=== PATIENT | female | born 1945 | race Caucasian/White ===

== ENCOUNTER 2017-11-10 13:51 | Outpatient (CLI) | payer MEDICARE, MEDICAID ==
--- NOTE | 2017-11-10 17:11 | RAD ---
RIGHT HIP TWO VIEWS 11/10/17 No fracture or area of bony destruction was seen. The joint space is normal in width. Degenerative ch anges are quite minimal. The adjacent pubic ring appears intact. IMPRESSION: No acute findings. POS: HOME
--- NOTE | 2017-11-10 17:15 | RAD ---
LEFT HIP TWO VIEWS 11/10/17 No fracture or area of bony destruction was seen. Degenerative changes are present but not excessive. There may be some subchondral cysts in the femoral head. IMPRESSION: No acute findings. POS: HOME
--- NOTE | 2017-11-10 17:41 | RAD ---
LUMBAR SPINE FIVE VIEWS 11/10/17 There is a minimal compression of the L1 vertebral body. It is more likely old than new but should be correlated with any site of pain. Disc space narrowing is present at L4-L5 with a degenerated disc h ere. The other disc spaces are normal in height but virtually all have degenerated discs as well. The re is some mild scoliosis of the lumbar spine. The SI joints are symmetrical. The aorta is calcified and there is the suggestion that there may be a 3.3 cm distal abdominal aortic aneurysm. Looking back at a [address], there indeed is a dilation of the aorta here that measured 3.1 cm at the e. Thus is it stable. IMPRESSION: 1. Very minor compression of L1, age indeterminate but probably more likely old than new. Correl ate with clinical exam. 2. Multilevel degenerative disc disease with mild disc space narrowing at L4-L5. 3. 3.3 cm distal abdominal aortic aneurysm. Not substantially different in size compared to a [address] scan[address] POS: HOME
== END 2017-11-10 13:52 | disposition home or self-care (01) ==
LOC: BURRAD 13:51
PROVIDERS: ATTEND Nurse Practitioner Family
DX: M54.9 Dorsalgia, unspecified (principal); G95.20 Unspecified cord compression; M51.36 Other intervertebral disc degeneration, lumbar region; M48.061 Spinal stenosis, lumbar region without neurogenic claudication; I71.4 Abdominal aortic aneurysm, without rupture; Z91.81 History of falling
CPT/HCPCS: 72110

== ENCOUNTER 2018-04-04 08:07 | Outpatient (CLI) | payer MEDICARE, OTHER ==
--- NOTE | 2018-04-04 15:30 | ULT ---
THYROID ULTRASOUND: 04/04/2018 COMPARISON: Prior thyroid ultrasound, dated 07/26/2016. FINDINGS: Overall, the size of the thyroid gland has increased slightly over time. The right lobe measures 4.8 x 2 x 2 cm, and the left lobe measures 4.6 x 3.1 x 2.6 cm. The right lobe has at least 3 solid nodules in it, the largest measuring 1.5 cm in diameter, in the u pper pole. A large solitary calcification is seen in the middle third, measuring about 4 mm in size. Overall, the nodules seem comparable to before. The left lobe, again, shows a large, solid nodule with a cystic center portion. The large nodule dutch sures 3.3 cm in diameter, and the cystic part measures about 2.3 cm in size. There may be a septatio n in the middle of this cystic area. The size of these findings is almost identical to the 2016 stud y. The septated area seems somewhat new. I would note that many of these nodules do have a somewhat lucent halo around them, making thyroid ad enomas high on the list of considerations. None of the images show significant cervical adenopathy. IMPRESSION: Slight increase in the overall size of the thyroid gland over time. The multiple nodules described a timothy seem fairly stable. POS: HOME
== END 2018-04-04 08:08 | disposition home or self-care (01) ==
LOC: BURULT 08:07
PROVIDERS: ATTEND Nurse Practitioner Family
DX: E04.2 Nontoxic multinodular goiter (principal)
CPT/HCPCS: 76536

== ENCOUNTER 2021-11-30 10:56 | Inpatient (IN) | payer MEDICARE, MEDICAID ==
[2021-11-30] MEDS ORDERED: Non-Formulary Item 1 EACH (Albuterol Sulfate [Ventolin Hfa] 8 GM Hfa.Aer.Ad) INH PRN (13:31)
[2021-11-30] MEDS ORDERED: Albuterol Sulfate 2.5 mg/3 ml Neb NEB PRN (13:31)
[2021-11-30] MEDS ORDERED: Loperamide HCl 2 MG CAP PO PRN (13:31)
[2021-11-30] MEDS ORDERED: Alendronate Sodium 70 mg Tablet PO SCH (13:45)
[2021-11-30] MEDS ORDERED: Arformoterol 15 MCG/2 ML NEB NEB PRN (13:53)
[2021-11-30 14:36] VITALS: BMI 21.2
[2021-11-30] MEDS: Acetaminophen 325 MG TAB PO SCH ×2 (15:07→20:39)
[2021-11-30] MEDS: Gabapentin 300 MG CAP PO SCH ×2 (15:08→20:39)
[2021-11-30 17:08] LABS: ALT (SGPT) 13 U/L (8-55); AST (SGOT) 17 U/L (5-34); Alkaline Phosphatase 123 U/L (40-110); Anion Gap 11 mmol/L (10-20); BUN (Urea Nitrogen) 12 mg/dL (9.8-20.1); CRP (Inflammatory) 28.64 mg/dL (= or < 0.5); Calc. Creatinine Clearance 69 mL/min (70-130); Calcium 8.4 mg/dL (7.8-10.44); Carbon Dioxide 27 mmol/L (23-31); Chloride 99 mmol/L (98-107); Globulin 3.6 g/dL (2.4-3.5); Glucose 122 mg/dL (83-110); Potassium 3.7 mmol/L (3.5-5.1); Protein, Total 6.6 g/dL (5.8-8.1); Sodium 133 mmol/L (136-145)
[2021-11-30 17:13] LABS: Bilirubin Negative (Negative); Blood, Urine Large (Negative); Clarity Turbid (Clear); Glucose, Urine (Dipstick) Negative (Negative); Ketone, Urine Negative (Negative); Leukocyte Moderate (Negative); Nitrite Negative (Negative); Protein, Urine (Dipstick) > or equal to 300 mg/dL (Neg-Trace); Urobilinogen 0.2 mg/dL (Less than 2); pH, Urine 6.5 (5.0-9.0)
[2021-11-30 17:25] LABS: Hemoglobin 9.9 g/dL (12.0-16.0); Mean Corpuscular HGB CONC 33.8 g/dL (32.0-36.0); Mean Corpuscular Hemoglobin 31.2 pg (27.0-31.0); Mean Corpuscular Volume 92.4 fL (78.0-98.0); Mean Platelet Volume 7.4 fL (7.4-10.4); Platelet Count 371 thou/uL (130-400); RBC Distribution Width 13.4 % (11.5-14.5); Red Blood Cell (RBC) Count 3.17 mill/uL (4.20-5.40); White Blood Cell (WBC) Count 14.6 thou/uL (4.8-10.8)
[2021-11-30 17:46] LABS: Bacteria/HPF Rare-Few HPF (None Seen); Renal Epithelial 0-3 HPF (None Seen); WBC/HPF Greater than 50 HPF (0-3)
[2021-11-30 17:47] LABS: Epithelial Cast 0-3 LPF (None Seen); White Blood Cell Cast 0-3 LPF (None Seen)
[2021-11-30 17:49] LABS: Urine Culture Reflex No No
[2021-11-30 17:53] LABS: Band 3 % (5-11); Lymphocytes 6 % (21-51); MDiff Complete? YES; Monocytes 7 % (0-10); Neutrophil 83 % (42-75); Reflex for Review?? YES
[2021-11-30] MEDS ORDERED: Sodium Chloride 0.9% 250 ML 250 ML IVPB SCH (19:45)
[2021-11-30] MEDS ORDERED: Vancomycin 1.5 GRAM/300 ML BAG 1.5 GM in Premix Bag 1 BAG IVPB SCH (20:00)
[2021-11-30 20:50] VITALS: BP 124/73
[2021-11-30] MEDS ORDERED: Senokot S 8.6-50 MG TAB PO SCH (21:00)
[2021-11-30] MEDS ORDERED: Enoxaparin Sodium 30 MG/0.3 ML SYRINGE SC SCH (21:00)
[2021-11-30] MEDS ORDERED: Magnesium Oxide 400 MG TAB PO SCH (21:00)
[2021-11-30] MEDS ORDERED: Diltiazem HCl SR 60 mg Capsule PO SCH (21:00)
[2021-11-30] MEDS ORDERED: DILTIAZEM HCL 60 MG PO SCH (21:00)
[2021-11-30] MEDS ORDERED: Aspirin 81 mg Enteric Coated Tablet PO SCH (21:00)
[2021-11-30 21:57] VITALS: TEMP 99.6
[2021-11-30] MEDS ORDERED: Cefepime 2 GM in Sodium Chloride 0.9% 100 ML IVPB SCH (22:00)
[2021-12-01] MEDS ORDERED: Ascorbic Acid 500 mg Chewable Tablet PO SCH (09:00)
[2021-12-01] MEDS ORDERED: Multivit, Therapeutic 1 TAB PO SCH (09:00)
[2021-12-01] MEDS ORDERED: Atorvastatin Calcium 40 MG TAB PO SCH ×2 (09:00)
[2021-12-01] MEDS ORDERED: Polyethylene Glycol 3350 17 GM Packet PO SCH (09:00)
[2021-12-01] MEDS ORDERED: Escitalopram Oxalate 10 mg Tablet PO SCH (09:00)
[2021-12-01] MEDS ORDERED: Montelukast Sodium 10 mg Tablet PO SCH (09:00)
[2021-12-01] MEDS ORDERED: FLU VACC QS2021-22(65YR UP)/PF 240 MCG/0.7 ML SYRINGE IM ONE (09:00)
[2021-12-01] MEDS ORDERED: Floranex 1 GM Packet PO SCH (09:00)
[2021-12-01] MEDS ORDERED: Zinc Sulfate 220 MG CAP PO SCH (09:00)
== END 2021-11-30 22:25 | disposition short-term general hospital (02) | DRG 561 ==
LOC: BURMED 12:45
PROVIDERS: ADMIT Family Medicine; ATTEND Family Medicine
DX: S72.002D Fracture of unspecified part of neck of left femur, subsequent encounter for closed fracture with routine healing (principal); W19.XXXD Unspecified fall, subsequent encounter; F32.A Depression, unspecified; I25.10 Atherosclerotic heart disease of native coronary artery without angina pectoris; J44.9 Chronic obstructive pulmonary disease, unspecified; M19.90 Unspecified osteoarthritis, unspecified site; F17.210 Nicotine dependence, cigarettes, uncomplicated
CPT/HCPCS: 36415; 80053; 81001; 83605; 85025; 85060; 86140; 87040; 87077; 87149; 87186; J0692; J1650; J3370; J3490; J7050

== ENCOUNTER 2021-12-09 13:45 | Inpatient (IN) | payer MEDICARE, MEDICAID ==
[2021-12-09 15:48] VITALS: BMI 18.8
[2021-12-09] MEDS ORDERED: Loperamide HCl 2 MG CAP PO PRN (17:31)
[2021-12-09] MEDS ORDERED: Albuterol Sulfate 2.5 mg/3 ml Neb NEB PRN (17:31)
[2021-12-09] MEDS ORDERED: Non-Formulary Item 1 EACH (Albuterol Sulfate [Ventolin Hfa] 8 GM Hfa.Aer.Ad) INH PRN (17:31)
[2021-12-09] MEDS ORDERED: Artificial Tear Sol 15 ML BOT EA EYE PRN (17:31)
[2021-12-09] MEDS ORDERED: Alendronate Sodium 70 mg Tablet PO SCH (17:45)
[2021-12-09] MEDS ORDERED: FORMOTEROL FUMARATE 20 MCG/2 ML INH PRN (18:03)
[2021-12-09] MEDS: traMADol HCl 50 MG TAB PO PRN (18:20)
[2021-12-09] MEDS: Vancomycin HCl 750 MG in Sodium Chloride 0.9% 250 ML 250 ML IVPB SCH (18:31)
[2021-12-09] MEDS: Aspirin 81 mg Enteric Coated Tablet PO SCH (20:24)
[2021-12-09] MEDS: Magnesium Oxide 400 MG TAB PO SCH (20:24)
[2021-12-09] MEDS: Apixaban 2.5 MG TAB PO SCH (20:24)
[2021-12-09] MEDS: Senokot S 8.6-50 MG TAB PO SCH (20:25)
[2021-12-09] MEDS: Diltiazem HCl SR 60 mg Capsule PO SCH (20:25)
[2021-12-09] MEDS: Acetaminophen 325 MG TAB PO SCH (20:25)
[2021-12-09] MEDS: Gabapentin 300 MG CAP PO SCH (20:26)
[2021-12-09] MEDS: Mometasone/Formoterol 60 PUFF AER INH SCH (20:29)
[2021-12-09] MEDS ORDERED: Vancomycin HCl 750 MG VIAL IVPB SCH (23:59)
[2021-12-10] MEDS: Acetaminophen 325 MG TAB PO SCH ×4 (01:57→20:18)
[2021-12-10] MEDS: Vancomycin HCl 750 MG in Sodium Chloride 0.9% 250 ML 250 ML IVPB SCH (01:58)
[2021-12-10 09:11] LABS: Vancomycin, Trough 26.1 ug/mL
[2021-12-10] MEDS: Polyethylene Glycol 3350 17 GM Packet PO SCH (09:30)
[2021-12-10] MEDS ORDERED: Vancomycin HCl 750 MG, Admixture Fee 1 EACH in Sodium Chloride 0.9% 250 ML 250 ML IVPB SCH (09:45)
[2021-12-10] MEDS: Floranex 1 GM Packet PO SCH (10:19)
[2021-12-10] MEDS: Senokot S 8.6-50 MG TAB PO SCH ×2 (10:20→20:17)
[2021-12-10] MEDS: Multivit, Therapeutic 1 TAB PO SCH (10:20)
[2021-12-10] MEDS: Gabapentin 300 MG CAP PO SCH ×3 (10:21→20:19)
[2021-12-10] MEDS: Apixaban 2.5 MG TAB PO SCH ×2 (10:22→20:18)
[2021-12-10] MEDS: Escitalopram Oxalate 10 mg Tablet PO SCH (10:22)
[2021-12-10] MEDS: Aspirin 81 mg Enteric Coated Tablet PO SCH ×2 (10:22→20:17)
[2021-12-10] MEDS: Saccharomyces boulardii 250 MG CAP PO SCH (10:23)
[2021-12-10] MEDS: Montelukast Sodium 10 mg Tablet PO SCH (10:24)
[2021-12-10] MEDS: Magnesium Oxide 400 MG TAB PO SCH ×2 (10:24→20:18)
[2021-12-10] MEDS: Zinc Sulfate 220 MG CAP PO SCH (10:24)
[2021-12-10] MEDS: Ascorbic Acid 500 mg Chewable Tablet PO SCH (10:25)
[2021-12-10] MEDS: Cholecalciferol (Vitamin D3) 400 UNITS TAB PO SCH (10:25)
[2021-12-10] MEDS: Diltiazem HCl SR 60 mg Capsule PO SCH ×2 (10:25→20:18)
[2021-12-10] MEDS: Mometasone/Formoterol 60 PUFF AER INH SCH ×2 (10:26→21:21)
[2021-12-10 17:32] LABS: Vancomycin, Random 21.2 ug/mL (See Comment)
[2021-12-10] MEDS: Atorvastatin Calcium 40 MG TAB PO SCH (20:18)
[2021-12-11] MEDS ORDERED: Vancomycin HCl 750 MG, Admixture Fee 1 EACH in Sodium Chloride 0.9% 250 ML 250 ML IVPB SCH
[2021-12-11] MEDS: Acetaminophen 325 MG TAB PO SCH ×4 (02:09→20:20)
[2021-12-11] MEDS: Saccharomyces boulardii 250 MG CAP PO SCH (09:38)
[2021-12-11] MEDS: Senokot S 8.6-50 MG TAB PO SCH ×2 (09:41→20:20)
[2021-12-11] MEDS: Aspirin 81 mg Enteric Coated Tablet PO SCH ×2 (09:41→20:20)
[2021-12-11] MEDS: Zinc Sulfate 220 MG CAP PO SCH (09:41)
[2021-12-11] MEDS: Apixaban 2.5 MG TAB PO SCH ×2 (09:41→20:20)
[2021-12-11] MEDS: Cholecalciferol (Vitamin D3) 400 UNITS TAB PO SCH (09:41)
[2021-12-11] MEDS: Magnesium Oxide 400 MG TAB PO SCH ×2 (09:41→20:20)
[2021-12-11] MEDS: Ascorbic Acid 500 mg Chewable Tablet PO SCH (09:41)
[2021-12-11] MEDS: Montelukast Sodium 10 mg Tablet PO SCH (09:41)
[2021-12-11] MEDS: Escitalopram Oxalate 10 mg Tablet PO SCH (09:41)
[2021-12-11] MEDS: Multivit, Therapeutic 1 TAB PO SCH (09:41)
[2021-12-11] MEDS: Gabapentin 300 MG CAP PO SCH ×3 (09:42→20:20)
[2021-12-11] MEDS: Floranex 1 GM Packet PO SCH (09:44)
[2021-12-11] MEDS: Polyethylene Glycol 3350 17 GM Packet PO SCH (09:45)
[2021-12-11] MEDS: Mometasone/Formoterol 60 PUFF AER INH SCH ×2 (10:09→20:27)
[2021-12-11] MEDS: Diltiazem HCl SR 60 mg Capsule PO SCH ×2 (10:12→20:20)
[2021-12-11] MEDS: Vancomycin HCl 750 MG in Sodium Chloride 0.9% 250 ML 250 ML IVPB SCH (12:31)
[2021-12-11] MEDS ORDERED: Fluconazole 100 MG TAB PO SCH (17:45)
[2021-12-11] MEDS: Atorvastatin Calcium 40 MG TAB PO SCH (20:20)
[2021-12-12] MEDS: Acetaminophen 325 MG TAB PO SCH ×4 (00:56→20:17)
[2021-12-12] MEDS: Vancomycin HCl 750 MG in Sodium Chloride 0.9% 250 ML 250 ML IVPB SCH ×3 (00:56→23:38)
[2021-12-12] MEDS: Montelukast Sodium 10 mg Tablet PO SCH (08:53)
[2021-12-12] MEDS: Magnesium Oxide 400 MG TAB PO SCH ×2 (08:53→20:16)
[2021-12-12] MEDS: Senokot S 8.6-50 MG TAB PO SCH ×2 (08:53→20:13)
[2021-12-12] MEDS: Floranex 1 GM Packet PO SCH (08:53)
[2021-12-12] MEDS: Saccharomyces boulardii 250 MG CAP PO SCH (08:53)
[2021-12-12] MEDS: Zinc Sulfate 220 MG CAP PO SCH (08:53)
[2021-12-12] MEDS: Diltiazem HCl SR 60 mg Capsule PO SCH ×2 (08:53→20:16)
[2021-12-12] MEDS: Aspirin 81 mg Enteric Coated Tablet PO SCH ×2 (08:54→20:16)
[2021-12-12] MEDS: Multivit, Therapeutic 1 TAB PO SCH (08:54)
[2021-12-12] MEDS: Cholecalciferol (Vitamin D3) 400 UNITS TAB PO SCH (08:54)
[2021-12-12] MEDS: Escitalopram Oxalate 10 mg Tablet PO SCH (08:54)
[2021-12-12] MEDS: Apixaban 2.5 MG TAB PO SCH ×2 (08:54→20:16)
[2021-12-12] MEDS: Fluconazole 100 MG TAB PO SCH (08:54)
[2021-12-12] MEDS: Polyethylene Glycol 3350 17 GM Packet PO SCH (08:54)
[2021-12-12] MEDS: Ascorbic Acid 500 mg Chewable Tablet PO SCH (08:54)
[2021-12-12] MEDS: Mometasone/Formoterol 60 PUFF AER INH SCH ×2 (08:55→20:54)
[2021-12-12] MEDS: Gabapentin 300 MG CAP PO SCH ×3 (08:55→20:15)
[2021-12-12 11:32] LABS: Vancomycin, Trough 18.1 ug/mL
[2021-12-12] MEDS: traMADol HCl 50 MG TAB PO PRN (13:43)
[2021-12-12] MEDS: Atorvastatin Calcium 40 MG TAB PO SCH (20:17)
[2021-12-13] MEDS ORDERED: Acetaminophen 325 MG TAB ONE ×5 (01:37→21:00)
[2021-12-13] MEDS: Acetaminophen 325 MG TAB PO SCH ×4 (01:41→21:02)
[2021-12-13 05:54] LABS: #Basophils 0.2 thou/uL (0.0-0.2); #Eosinphils 0.1 thou/uL (0.0-0.7); #Monocytes 0.7 thou/uL (0.11-0.59); #Neutrophils 11.7 thou/uL (1.40-6.50); %Eosinophils 0.7 % (0.0-10.0); %Lymphocytes 13.8 % (21.0-51.0); %Monocytes 4.8 % (0.0-10.0); %Neutrophils 79.7 % (42.0-75.0); Hemoglobin 8.7 g/dL (12.0-16.0); Mean Corpuscular HGB CONC 32.6 g/dL (32.0-36.0); Mean Corpuscular Hemoglobin 29.8 pg (27.0-31.0); Mean Corpuscular Volume 91.3 fL (78.0-98.0); Mean Platelet Volume 6.1 fL (7.4-10.4); Platelet Count 511 thou/uL (130-400); RBC Distribution Width 14.3 % (11.5-14.5); Red Blood Cell (RBC) Count 2.93 mill/uL (4.20-5.40); White Blood Cell (WBC) Count 14.7 thou/uL (4.8-10.8)
[2021-12-13 06:05] LABS: ALT (SGPT) 49 U/L (8-55); AST (SGOT) 52 U/L (5-34); Albumin 2.5 g/dL (3.4-4.8); Alkaline Phosphatase 120 U/L (40-110); Anion Gap 12 mmol/L (10-20); BUN (Urea Nitrogen) 20 mg/dL (9.8-20.1); Bilirubin, Total 0.4 mg/dL (0.2-1.2); Calc. Creatinine Clearance 65 mL/min (70-130); Calcium 8.6 mg/dL (7.8-10.44); Carbon Dioxide 28 mmol/L (23-31); Chloride 102 mmol/L (98-107); Globulin 3.6 g/dL (2.4-3.5); Glucose 94 mg/dL (83-110); Potassium 4.1 mmol/L (3.5-5.1); Protein, Total 6.1 g/dL (5.8-8.1); Sodium 138 mmol/L (136-145)
[2021-12-13] MEDS: Polyethylene Glycol 3350 17 GM Packet PO SCH (09:10)
[2021-12-13] MEDS: Floranex 1 GM Packet PO SCH (09:10)
[2021-12-13] MEDS: traMADol HCl 50 MG TAB PO PRN (09:11)
[2021-12-13] MEDS: Aspirin 81 mg Enteric Coated Tablet PO SCH ×2 (09:12→21:03)
[2021-12-13] MEDS: Saccharomyces boulardii 250 MG CAP PO SCH (09:12)
[2021-12-13] MEDS: Montelukast Sodium 10 mg Tablet PO SCH (09:12)
[2021-12-13] MEDS: Zinc Sulfate 220 MG CAP PO SCH (09:14)
[2021-12-13] MEDS: Escitalopram Oxalate 10 mg Tablet PO SCH (09:14)
[2021-12-13] MEDS: Fluconazole 100 MG TAB PO SCH (09:14)
[2021-12-13] MEDS: Senokot S 8.6-50 MG TAB PO SCH ×2 (09:14→21:03)
[2021-12-13] MEDS: Apixaban 2.5 MG TAB PO SCH ×2 (09:14→21:02)
[2021-12-13] MEDS: Cholecalciferol (Vitamin D3) 400 UNITS TAB PO SCH (09:14)
[2021-12-13] MEDS: Gabapentin 300 MG CAP PO SCH ×3 (09:15→21:04)
[2021-12-13] MEDS: Multivit, Therapeutic 1 TAB PO SCH (09:15)
[2021-12-13] MEDS: Magnesium Oxide 400 MG TAB PO SCH ×2 (09:15→21:02)
[2021-12-13] MEDS: Ascorbic Acid 500 mg Chewable Tablet PO SCH (09:15)
[2021-12-13] MEDS: Mometasone/Formoterol 60 PUFF AER INH SCH ×2 (09:16→21:04)
[2021-12-13] MEDS: Ondansetron ODT 4 MG TAB PO PRN (10:35)
[2021-12-13] MEDS: Vancomycin HCl 750 MG in Sodium Chloride 0.9% 250 ML 250 ML IVPB SCH (11:16)
[2021-12-13] MEDS: Atorvastatin Calcium 40 MG TAB PO SCH (21:02)
[2021-12-13 23:18] LABS: Vancomycin, Trough 20.2 ug/mL
[2021-12-14] MEDS ORDERED: Acetaminophen 325 MG TAB ONE ×2 (00:29→08:08)
[2021-12-14] MEDS: Vancomycin HCl 750 MG in Sodium Chloride 0.9% 250 ML 250 ML IVPB SCH ×2 (00:42→13:09)
[2021-12-14] MEDS: Acetaminophen 325 MG TAB PO SCH ×4 (00:48→20:43)
[2021-12-14] MEDS: Polyethylene Glycol 3350 17 GM Packet PO SCH (08:23)
[2021-12-14] MEDS: Floranex 1 GM Packet PO SCH (08:24)
[2021-12-14] MEDS: Mometasone/Formoterol 60 PUFF AER INH SCH ×2 (08:24→20:46)
[2021-12-14] MEDS: Ascorbic Acid 500 mg Chewable Tablet PO SCH (08:25)
[2021-12-14] MEDS: Aspirin 81 mg Enteric Coated Tablet PO SCH ×2 (08:25→20:46)
[2021-12-14] MEDS: Apixaban 2.5 MG TAB PO SCH ×2 (08:25→20:44)
[2021-12-14] MEDS: Magnesium Oxide 400 MG TAB PO SCH ×2 (08:25→20:45)
[2021-12-14] MEDS: Zinc Sulfate 220 MG CAP PO SCH (08:25)
[2021-12-14] MEDS: Multivit, Therapeutic 1 TAB PO SCH (08:25)
[2021-12-14] MEDS: Escitalopram Oxalate 10 mg Tablet PO SCH (08:25)
[2021-12-14] MEDS: Fluconazole 100 MG TAB PO SCH (08:25)
[2021-12-14] MEDS: Senokot S 8.6-50 MG TAB PO SCH ×2 (08:26→20:44)
[2021-12-14] MEDS: Saccharomyces boulardii 250 MG CAP PO SCH (08:26)
[2021-12-14] MEDS: Cholecalciferol (Vitamin D3) 400 UNITS TAB PO SCH (08:26)
[2021-12-14] MEDS: Montelukast Sodium 10 mg Tablet PO SCH (08:26)
[2021-12-14] MEDS: Gabapentin 300 MG CAP PO SCH ×3 (08:26→20:42)
[2021-12-14] MEDS: traMADol HCl 50 MG TAB PO PRN (17:03)
[2021-12-14] MEDS: Atorvastatin Calcium 40 MG TAB PO SCH (20:45)
[2021-12-15] MEDS: Vancomycin HCl 750 MG in Sodium Chloride 0.9% 250 ML 250 ML IVPB SCH ×2 (00:10→12:26)
[2021-12-15] MEDS: Acetaminophen 325 MG TAB PO SCH ×4 (02:18→20:26)
[2021-12-15 05:21] LABS: Calc. Creatinine Clearance 69 mL/min (70-130)
[2021-12-15] MEDS: Aspirin 81 mg Enteric Coated Tablet PO SCH ×2 (11:02→20:25)
[2021-12-15] MEDS: Escitalopram Oxalate 10 mg Tablet PO SCH (11:03)
[2021-12-15] MEDS: Gabapentin 300 MG CAP PO SCH ×3 (11:03→20:25)
[2021-12-15] MEDS: Fluconazole 100 MG TAB PO SCH (11:04)
[2021-12-15] MEDS: Montelukast Sodium 10 mg Tablet PO SCH (11:04)
[2021-12-15] MEDS: Cholecalciferol (Vitamin D3) 400 UNITS TAB PO SCH (11:05)
[2021-12-15] MEDS: Ascorbic Acid 500 mg Chewable Tablet PO SCH (11:05)
[2021-12-15] MEDS: Senokot S 8.6-50 MG TAB PO SCH ×2 (11:05→20:25)
[2021-12-15] MEDS: Apixaban 2.5 MG TAB PO SCH ×2 (11:05→20:25)
[2021-12-15] MEDS: Polyethylene Glycol 3350 17 GM Packet PO SCH (11:06)
[2021-12-15] MEDS: Saccharomyces boulardii 250 MG CAP PO SCH (11:06)
[2021-12-15] MEDS: Multivit, Therapeutic 1 TAB PO SCH (11:06)
[2021-12-15] MEDS: Floranex 1 GM Packet PO SCH (11:06)
[2021-12-15] MEDS: Zinc Sulfate 220 MG CAP PO SCH (11:07)
[2021-12-15] MEDS: Magnesium Oxide 400 MG TAB PO SCH ×2 (11:07→20:25)
[2021-12-15] MEDS: Mometasone/Formoterol 60 PUFF AER INH SCH ×2 (11:07→20:29)
[2021-12-15 11:36] LABS: Vancomycin, Trough 18.3 ug/mL
[2021-12-15] MEDS: traMADol HCl 50 MG TAB PO PRN (16:59)
[2021-12-15] MEDS: Atorvastatin Calcium 40 MG TAB PO SCH (20:25)
[2021-12-16] MEDS: Vancomycin HCl 750 MG in Sodium Chloride 0.9% 250 ML 250 ML IVPB SCH ×2 (00:16→12:52)
[2021-12-16] MEDS: Acetaminophen 325 MG TAB PO SCH ×4 (02:11→21:48)
[2021-12-16 05:51] LABS: Calc. Creatinine Clearance 69 mL/min (70-130)
[2021-12-16] MEDS: Polyethylene Glycol 3350 17 GM Packet PO SCH (09:25)
[2021-12-16] MEDS: Floranex 1 GM Packet PO SCH (09:26)
[2021-12-16] MEDS: Senokot S 8.6-50 MG TAB PO SCH ×2 (09:26→21:42)
[2021-12-16] MEDS: Ascorbic Acid 500 mg Chewable Tablet PO SCH (09:26)
[2021-12-16] MEDS: Aspirin 81 mg Enteric Coated Tablet PO SCH ×2 (09:26→21:42)
[2021-12-16] MEDS: Montelukast Sodium 10 mg Tablet PO SCH (09:26)
[2021-12-16] MEDS: Apixaban 2.5 MG TAB PO SCH ×2 (09:26→21:42)
[2021-12-16] MEDS: Escitalopram Oxalate 10 mg Tablet PO SCH (09:27)
[2021-12-16] MEDS: Saccharomyces boulardii 250 MG CAP PO SCH (09:28)
[2021-12-16] MEDS: Gabapentin 300 MG CAP PO SCH ×3 (09:28→21:42)
[2021-12-16] MEDS: Zinc Sulfate 220 MG CAP PO SCH (09:29)
[2021-12-16] MEDS: Magnesium Oxide 400 MG TAB PO SCH ×2 (09:29→21:41)
[2021-12-16] MEDS: Fluconazole 100 MG TAB PO SCH (09:29)
[2021-12-16] MEDS: Multivit, Therapeutic 1 TAB PO SCH (09:30)
[2021-12-16] MEDS: Cholecalciferol (Vitamin D3) 400 UNITS TAB PO SCH (09:30)
[2021-12-16] MEDS: Mometasone/Formoterol 60 PUFF AER INH SCH ×2 (14:48→21:42)
[2021-12-16] MEDS: Atorvastatin Calcium 40 MG TAB PO SCH (21:41)
[2021-12-17] MEDS: Vancomycin HCl 750 MG in Sodium Chloride 0.9% 250 ML 250 ML IVPB SCH ×3 (00:33→23:28)
[2021-12-17] MEDS: Acetaminophen 325 MG TAB PO SCH ×4 (00:59→20:07)
[2021-12-17 06:15] LABS: Calc. Creatinine Clearance 64 mL/min (70-130)
[2021-12-17] MEDS: Polyethylene Glycol 3350 17 GM Packet PO SCH (09:29)
[2021-12-17] MEDS: Multivit, Therapeutic 1 TAB PO SCH (09:29)
[2021-12-17] MEDS: Montelukast Sodium 10 mg Tablet PO SCH (09:29)
[2021-12-17] MEDS: Fluconazole 100 MG TAB PO SCH (09:29)
[2021-12-17] MEDS: Floranex 1 GM Packet PO SCH (09:29)
[2021-12-17] MEDS: Aspirin 81 mg Enteric Coated Tablet PO SCH ×2 (09:29→20:07)
[2021-12-17] MEDS: Ascorbic Acid 500 mg Chewable Tablet PO SCH (09:30)
[2021-12-17] MEDS: Cholecalciferol (Vitamin D3) 400 UNITS TAB PO SCH (09:31)
[2021-12-17] MEDS: Escitalopram Oxalate 10 mg Tablet PO SCH (09:31)
[2021-12-17] MEDS: Senokot S 8.6-50 MG TAB PO SCH ×2 (09:31→20:08)
[2021-12-17] MEDS: Apixaban 2.5 MG TAB PO SCH ×2 (09:31→20:07)
[2021-12-17] MEDS: Magnesium Oxide 400 MG TAB PO SCH ×2 (09:31→20:07)
[2021-12-17] MEDS: Zinc Sulfate 220 MG CAP PO SCH (09:31)
[2021-12-17] MEDS: Gabapentin 300 MG CAP PO SCH ×3 (09:32→20:08)
[2021-12-17] MEDS: Mometasone/Formoterol 60 PUFF AER INH SCH ×2 (09:33→20:11)
[2021-12-17] MEDS: Saccharomyces boulardii 250 MG CAP PO SCH (09:33)
[2021-12-17 11:38] LABS: Vancomycin, Trough 19.6 ug/mL
[2021-12-17] MEDS: Atorvastatin Calcium 40 MG TAB PO SCH (20:07)
[2021-12-18] MEDS: Acetaminophen 325 MG TAB PO SCH ×4 (01:22→20:14)
[2021-12-18 05:22] LABS: Calc. Creatinine Clearance 72 mL/min (70-130)
[2021-12-18] MEDS: Polyethylene Glycol 3350 17 GM Packet PO SCH (08:43)
[2021-12-18] MEDS: Floranex 1 GM Packet PO SCH (08:43)
[2021-12-18] MEDS: Ascorbic Acid 500 mg Chewable Tablet PO SCH (08:44)
[2021-12-18] MEDS: Magnesium Oxide 400 MG TAB PO SCH ×2 (08:44→20:13)
[2021-12-18] MEDS: Senokot S 8.6-50 MG TAB PO SCH ×2 (08:44→20:13)
[2021-12-18] MEDS: Escitalopram Oxalate 10 mg Tablet PO SCH (08:44)
[2021-12-18] MEDS: Apixaban 2.5 MG TAB PO SCH ×2 (08:44→20:13)
[2021-12-18] MEDS: Aspirin 81 mg Enteric Coated Tablet PO SCH ×2 (08:44→20:13)
[2021-12-18] MEDS: Saccharomyces boulardii 250 MG CAP PO SCH (08:45)
[2021-12-18] MEDS: Montelukast Sodium 10 mg Tablet PO SCH (08:45)
[2021-12-18] MEDS: Zinc Sulfate 220 MG CAP PO SCH (08:45)
[2021-12-18] MEDS: Multivit, Therapeutic 1 TAB PO SCH (08:45)
[2021-12-18] MEDS: Gabapentin 300 MG CAP PO SCH ×3 (08:45→20:14)
[2021-12-18] MEDS: Cholecalciferol (Vitamin D3) 400 UNITS TAB PO SCH (08:45)
[2021-12-18] MEDS: Mometasone/Formoterol 60 PUFF AER INH SCH ×2 (08:47→20:14)
[2021-12-18] MEDS: Vancomycin HCl 750 MG in Sodium Chloride 0.9% 250 ML 250 ML IVPB SCH ×2 (12:57→23:32)
[2021-12-18] MEDS: Atorvastatin Calcium 40 MG TAB PO SCH (20:13)
[2021-12-19] MEDS: Acetaminophen 325 MG TAB PO SCH ×4 (01:28→20:37)
[2021-12-19 05:58] LABS: Calc. Creatinine Clearance 74 mL/min (70-130)
[2021-12-19] MEDS: Saccharomyces boulardii 250 MG CAP PO SCH (09:17)
[2021-12-19] MEDS: Escitalopram Oxalate 10 mg Tablet PO SCH (09:17)
[2021-12-19] MEDS: Polyethylene Glycol 3350 17 GM Packet PO SCH (09:17)
[2021-12-19] MEDS: Senokot S 8.6-50 MG TAB PO SCH ×2 (09:18→20:36)
[2021-12-19] MEDS: Apixaban 2.5 MG TAB PO SCH ×2 (09:18→20:38)
[2021-12-19] MEDS: Aspirin 81 mg Enteric Coated Tablet PO SCH ×2 (09:18→20:38)
[2021-12-19] MEDS: Zinc Sulfate 220 MG CAP PO SCH (09:18)
[2021-12-19] MEDS: Cholecalciferol (Vitamin D3) 400 UNITS TAB PO SCH (09:19)
[2021-12-19] MEDS: Gabapentin 300 MG CAP PO SCH ×3 (09:20→20:36)
[2021-12-19] MEDS: Multivit, Therapeutic 1 TAB PO SCH (09:20)
[2021-12-19] MEDS: Magnesium Oxide 400 MG TAB PO SCH ×2 (09:20→20:37)
[2021-12-19] MEDS: Mometasone/Formoterol 60 PUFF AER INH SCH ×2 (09:21→20:47)
[2021-12-19] MEDS: Ascorbic Acid 500 mg Chewable Tablet PO SCH (09:21)
[2021-12-19] MEDS: Montelukast Sodium 10 mg Tablet PO SCH (09:21)
[2021-12-19] MEDS: Floranex 1 GM Packet PO SCH (09:21)
[2021-12-19] MEDS: Vancomycin HCl 750 MG in Sodium Chloride 0.9% 250 ML 250 ML IVPB SCH (12:17)
[2021-12-19] MEDS: Atorvastatin Calcium 40 MG TAB PO SCH (20:38)
[2021-12-20] MEDS: Vancomycin HCl 750 MG in Sodium Chloride 0.9% 250 ML 250 ML IVPB SCH ×3 (01:00→23:24)
[2021-12-20] MEDS: Acetaminophen 325 MG TAB PO SCH ×4 (01:25→20:47)
[2021-12-20 04:34] LABS: #Basophils 0.2 thou/uL (0.0-0.2); #Eosinphils 0.1 thou/uL (0.0-0.7); #Lymphocytes 1.9 thou/uL (1.20-3.40); #Monocytes 0.8 thou/uL (0.11-0.59); #Neutrophils 11.4 thou/uL (1.40-6.50); %Basophils 1.2 % (0.0-1.0); %Eosinophils 0.8 % (0.0-10.0); %Monocytes 5.7 % (0.0-10.0); %Neutrophils 79.4 % (42.0-75.0); Mean Corpuscular HGB CONC 33.4 g/dL (32.0-36.0); Mean Corpuscular Hemoglobin 29.6 pg (27.0-31.0); Mean Corpuscular Volume 88.6 fL (78.0-98.0); Mean Platelet Volume 5.8 fL (7.4-10.4); Platelet Count 533 thou/uL (130-400); Red Blood Cell (RBC) Count 2.36 mill/uL (4.20-5.40); White Blood Cell (WBC) Count 14.3 thou/uL (4.8-10.8)
[2021-12-20 04:45] LABS: ALT (SGPT) 85 U/L (8-55); AST (SGOT) 83 U/L (5-34); Albumin 2.5 g/dL (3.4-4.8); Alkaline Phosphatase 120 U/L (40-110); Anion Gap 13 mmol/L (10-20); BUN (Urea Nitrogen) 13 mg/dL (9.8-20.1); Bilirubin, Total 0.4 mg/dL (0.2-1.2); Calc. Creatinine Clearance 71 mL/min (70-130); Calcium 8.3 mg/dL (7.8-10.44); Carbon Dioxide 26 mmol/L (23-31); Chloride 103 mmol/L (98-107); Globulin 3.7 g/dL (2.4-3.5); Glucose 96 mg/dL (83-110); Potassium 3.3 mmol/L (3.5-5.1); Protein, Total 6.2 g/dL (5.8-8.1); Sodium 139 mmol/L (136-145)
[2021-12-20] MEDS ORDERED: Potassium Chloride 20 MEQ TAB PO SCH (07:15)
[2021-12-20] MEDS: Mometasone/Formoterol 60 PUFF AER INH SCH ×2 (09:23→21:38)
[2021-12-20] MEDS: Ascorbic Acid 500 mg Chewable Tablet PO SCH (09:28)
[2021-12-20] MEDS: Montelukast Sodium 10 mg Tablet PO SCH (09:31)
[2021-12-20] MEDS: Senokot S 8.6-50 MG TAB PO SCH (09:31)
[2021-12-20] MEDS: Ferrous Sulfate 325 MG TAB PO SCH ×2 (09:31→17:18)
[2021-12-20] MEDS: Zinc Sulfate 220 MG CAP PO SCH (09:31)
[2021-12-20] MEDS: Escitalopram Oxalate 10 mg Tablet PO SCH (09:31)
[2021-12-20] MEDS: Cholecalciferol (Vitamin D3) 400 UNITS TAB PO SCH (09:31)
[2021-12-20] MEDS: Magnesium Oxide 400 MG TAB PO SCH ×2 (09:31→20:49)
[2021-12-20] MEDS: Gabapentin 300 MG CAP PO SCH ×3 (09:31→20:49)
[2021-12-20] MEDS: Floranex 1 GM Packet PO SCH (09:32)
[2021-12-20] MEDS: Saccharomyces boulardii 250 MG CAP PO SCH (09:32)
[2021-12-20] MEDS: Multivit, Therapeutic 1 TAB PO SCH (09:32)
[2021-12-20] MEDS: Apixaban 2.5 MG TAB PO SCH ×2 (09:32→20:49)
[2021-12-20] MEDS: Polyethylene Glycol 3350 17 GM Packet PO SCH (09:32)
[2021-12-20] MEDS: Aspirin 81 mg Enteric Coated Tablet PO SCH ×2 (09:32→20:49)
[2021-12-20] MEDS: Ondansetron ODT 4 MG TAB PO PRN (18:21)
[2021-12-20] MEDS ORDERED: Polyethylene Glycol 3350 17 GM Packet PO PRN (19:30)
[2021-12-20] MEDS ORDERED: Senokot S 8.6-50 MG TAB PO PRN (19:32)
[2021-12-20] MEDS: Atorvastatin Calcium 40 MG TAB PO SCH (20:48)
[2021-12-21] MEDS: Acetaminophen 325 MG TAB PO SCH ×4 (01:40→20:47)
[2021-12-21 05:26] LABS: Calc. Creatinine Clearance 69 mL/min (70-130)
[2021-12-21] MEDS: Magnesium Oxide 400 MG TAB PO SCH ×2 (08:09→20:48)
[2021-12-21] MEDS: Gabapentin 300 MG CAP PO SCH ×3 (08:11→20:48)
[2021-12-21] MEDS: Montelukast Sodium 10 mg Tablet PO SCH (08:11)
[2021-12-21] MEDS: Escitalopram Oxalate 10 mg Tablet PO SCH (08:11)
[2021-12-21] MEDS: Floranex 1 GM Packet PO SCH (08:11)
[2021-12-21] MEDS: Apixaban 2.5 MG TAB PO SCH ×2 (08:11→20:48)
[2021-12-21] MEDS: Cholecalciferol (Vitamin D3) 400 UNITS TAB PO SCH (08:11)
[2021-12-21] MEDS: Ascorbic Acid 500 mg Chewable Tablet PO SCH (08:12)
[2021-12-21] MEDS: Aspirin 81 mg Enteric Coated Tablet PO SCH ×2 (08:12→20:48)
[2021-12-21] MEDS: Saccharomyces boulardii 250 MG CAP PO SCH (08:12)
[2021-12-21] MEDS: Ferrous Sulfate 325 MG TAB PO SCH ×2 (08:12→17:19)
[2021-12-21] MEDS: Multivit, Therapeutic 1 TAB PO SCH (08:12)
[2021-12-21] MEDS: Zinc Sulfate 220 MG CAP PO SCH (08:12)
[2021-12-21] MEDS: Mometasone/Formoterol 60 PUFF AER INH SCH ×2 (08:13→20:50)
[2021-12-21] MEDS: Vancomycin HCl 750 MG in Sodium Chloride 0.9% 250 ML 250 ML IVPB SCH (12:03)
[2021-12-21] MEDS: Atorvastatin Calcium 40 MG TAB PO SCH (20:48)
[2021-12-22] MEDS: Vancomycin HCl 750 MG in Sodium Chloride 0.9% 250 ML 250 ML IVPB SCH ×2 (00:23→16:41)
[2021-12-22] MEDS: Acetaminophen 325 MG TAB PO SCH ×4 (02:12→20:54)
[2021-12-22 04:45] LABS: Hemoglobin 6.2 g/dL (12.0-16.0); Mean Corpuscular Hemoglobin 29.9 pg (27.0-31.0); Mean Corpuscular Volume 90.7 fL (78.0-98.0); Mean Platelet Volume 5.3 fL (7.4-10.4); Platelet Count 438 thou/uL (130-400); RBC Distribution Width 14.8 % (11.5-14.5); Red Blood Cell (RBC) Count 2.06 mill/uL (4.20-5.40); White Blood Cell (WBC) Count 9.5 thou/uL (4.8-10.8)
[2021-12-22 04:55] LABS: Calc. Creatinine Clearance 69 mL/min (70-130)
[2021-12-22 05:27] LABS: Band 1 % (5-11); Eosinophils 1 % (0-10); Lymphocytes 16 % (21-51); MDiff Complete? YES; Metamyelocyte 1 % (0-0); Monocytes 7 % (0-10); Neutrophil 72 % (42-75)
[2021-12-22] MEDS: Multivit, Therapeutic 1 TAB PO SCH (09:43)
[2021-12-22] MEDS: Gabapentin 300 MG CAP PO SCH ×3 (09:45→20:55)
[2021-12-22] MEDS: Cholecalciferol (Vitamin D3) 400 UNITS TAB PO SCH (09:45)
[2021-12-22] MEDS: Aspirin 81 mg Enteric Coated Tablet PO SCH ×2 (09:45→20:55)
[2021-12-22] MEDS: Montelukast Sodium 10 mg Tablet PO SCH (09:45)
[2021-12-22] MEDS: Floranex 1 GM Packet PO SCH (09:45)
[2021-12-22] MEDS: Ascorbic Acid 500 mg Chewable Tablet PO SCH (09:45)
[2021-12-22] MEDS: Escitalopram Oxalate 10 mg Tablet PO SCH (09:45)
[2021-12-22] MEDS: Ferrous Sulfate 325 MG TAB PO SCH ×2 (09:46→17:01)
[2021-12-22] MEDS: Potassium Chloride 10 MEQ TAB PO SCH (09:46)
[2021-12-22] MEDS: Magnesium Oxide 400 MG TAB PO SCH ×2 (09:46→20:55)
[2021-12-22] MEDS: Saccharomyces boulardii 250 MG CAP PO SCH (09:46)
[2021-12-22] MEDS: Zinc Sulfate 220 MG CAP PO SCH (09:46)
[2021-12-22] MEDS: Mometasone/Formoterol 60 PUFF AER INH SCH ×2 (09:47→21:09)
[2021-12-22] MEDS: Atorvastatin Calcium 40 MG TAB PO SCH (20:55)
[2021-12-22] MEDS: Megestrol Acetate 40 MG TAB PO SCH (20:55)
[2021-12-23] MEDS: Vancomycin HCl 750 MG in Sodium Chloride 0.9% 250 ML 250 ML IVPB SCH ×2 (01:04→14:30)
[2021-12-23] MEDS: Acetaminophen 325 MG TAB PO SCH ×4 (01:16→20:38)
[2021-12-23 05:18] LABS: Calc. Creatinine Clearance 75 mL/min (70-130)
[2021-12-23 05:19] LABS: #Basophils 0.1 thou/uL (0.0-0.2); #Eosinphils 0.3 thou/uL (0.0-0.7); #Lymphocytes 2.3 thou/uL (1.20-3.40); #Monocytes 0.7 thou/uL (0.11-0.59); #Neutrophils 6.2 thou/uL (1.40-6.50); %Basophils 1.1 % (0.0-1.0); %Eosinophils 3.1 % (0.0-10.0); %Lymphocytes 24.3 % (21.0-51.0); %Monocytes 7.2 % (0.0-10.0); %Neutrophils 64.4 % (42.0-75.0); Hemoglobin 9.4 g/dL (12.0-16.0); Mean Corpuscular HGB CONC 33.3 g/dL (32.0-36.0); Mean Corpuscular Hemoglobin 30.1 pg (27.0-31.0); Mean Corpuscular Volume 90.3 fL (78.0-98.0); Mean Platelet Volume 5.8 fL (7.4-10.4); Platelet Count 399 thou/uL (130-400); RBC Distribution Width 14.5 % (11.5-14.5); Red Blood Cell (RBC) Count 3.14 mill/uL (4.20-5.40); White Blood Cell (WBC) Count 9.6 thou/uL (4.8-10.8)
[2021-12-23] MEDS: Saccharomyces boulardii 250 MG CAP PO SCH (08:47)
[2021-12-23] MEDS: Potassium Chloride 10 MEQ TAB PO SCH (08:47)
[2021-12-23] MEDS: Magnesium Oxide 400 MG TAB PO SCH ×2 (08:48→20:38)
[2021-12-23] MEDS: Aspirin 81 mg Enteric Coated Tablet PO SCH ×2 (08:48→20:37)
[2021-12-23] MEDS: Floranex 1 GM Packet PO SCH (08:48)
[2021-12-23] MEDS: Escitalopram Oxalate 10 mg Tablet PO SCH (08:49)
[2021-12-23] MEDS: Ferrous Sulfate 325 MG TAB PO SCH ×2 (08:49→18:31)
[2021-12-23] MEDS: Gabapentin 300 MG CAP PO SCH ×3 (08:49→20:39)
[2021-12-23] MEDS: Cholecalciferol (Vitamin D3) 400 UNITS TAB PO SCH (08:49)
[2021-12-23] MEDS: Megestrol Acetate 40 MG TAB PO SCH ×2 (08:50→20:38)
[2021-12-23] MEDS: Montelukast Sodium 10 mg Tablet PO SCH (08:50)
[2021-12-23] MEDS: Multivit, Therapeutic 1 TAB PO SCH (08:50)
[2021-12-23] MEDS: Mometasone/Formoterol 60 PUFF AER INH SCH ×2 (08:50→20:40)
[2021-12-23] MEDS: Zinc Sulfate 220 MG CAP PO SCH (08:50)
[2021-12-23] MEDS: Ascorbic Acid 500 mg Chewable Tablet PO SCH (14:33)
[2021-12-23] MEDS: Atorvastatin Calcium 40 MG TAB PO SCH (20:38)
[2021-12-24] MEDS: Vancomycin HCl 750 MG in Sodium Chloride 0.9% 250 ML 250 ML IVPB SCH ×2 (00:29→12:29)
[2021-12-24] MEDS: Acetaminophen 325 MG TAB PO SCH ×4 (02:07→21:47)
[2021-12-24 06:00] LABS: Calc. Creatinine Clearance 72 mL/min (70-130)
[2021-12-24] MEDS: Montelukast Sodium 10 mg Tablet PO SCH (08:27)
[2021-12-24] MEDS: Magnesium Oxide 400 MG TAB PO SCH ×2 (08:27→21:47)
[2021-12-24] MEDS: Aspirin 81 mg Enteric Coated Tablet PO SCH ×2 (08:27→21:46)
[2021-12-24] MEDS: Zinc Sulfate 220 MG CAP PO SCH (08:27)
[2021-12-24] MEDS: Floranex 1 GM Packet PO SCH (08:27)
[2021-12-24] MEDS: Megestrol Acetate 40 MG TAB PO SCH ×2 (08:27→21:46)
[2021-12-24] MEDS: Ferrous Sulfate 325 MG TAB PO SCH ×2 (08:28→17:12)
[2021-12-24] MEDS: Saccharomyces boulardii 250 MG CAP PO SCH (08:28)
[2021-12-24] MEDS: Apixaban 2.5 MG TAB PO SCH ×2 (08:29→21:48)
[2021-12-24] MEDS: Escitalopram Oxalate 10 mg Tablet PO SCH (08:29)
[2021-12-24] MEDS: Cholecalciferol (Vitamin D3) 400 UNITS TAB PO SCH (08:29)
[2021-12-24] MEDS: Multivit, Therapeutic 1 TAB PO SCH (08:30)
[2021-12-24] MEDS: Potassium Chloride 10 MEQ TAB PO SCH (08:30)
[2021-12-24] MEDS: Ascorbic Acid 500 mg Chewable Tablet PO SCH (08:30)
[2021-12-24] MEDS: Gabapentin 300 MG CAP PO SCH ×3 (08:30→21:47)
[2021-12-24] MEDS: Mometasone/Formoterol 60 PUFF AER INH SCH ×2 (08:39→22:18)
[2021-12-24 11:39] LABS: Vancomycin, Trough 19.1 ug/mL
[2021-12-24] MEDS: Ibuprofen 200 MG TAB PO PRN (13:27)
[2021-12-24] MEDS: Atorvastatin Calcium 40 MG TAB PO SCH (21:48)
[2021-12-25] MEDS: Vancomycin HCl 750 MG in Sodium Chloride 0.9% 250 ML 250 ML IVPB SCH ×2 (01:05→12:27)
[2021-12-25] MEDS: Acetaminophen 325 MG TAB PO SCH ×4 (04:11→23:20)
[2021-12-25 05:19] LABS: Calc. Creatinine Clearance 76 mL/min (70-130)
[2021-12-25] MEDS: Gabapentin 300 MG CAP PO SCH ×3 (09:30→22:19)
[2021-12-25] MEDS: Ascorbic Acid 500 mg Chewable Tablet PO SCH (09:31)
[2021-12-25] MEDS: Aspirin 81 mg Enteric Coated Tablet PO SCH ×2 (09:31→22:19)
[2021-12-25] MEDS: Escitalopram Oxalate 10 mg Tablet PO SCH (09:31)
[2021-12-25] MEDS: Magnesium Oxide 400 MG TAB PO SCH ×2 (09:31→22:19)
[2021-12-25] MEDS: Zinc Sulfate 220 MG CAP PO SCH (09:31)
[2021-12-25] MEDS: Montelukast Sodium 10 mg Tablet PO SCH (09:31)
[2021-12-25] MEDS: Floranex 1 GM Packet PO SCH (09:31)
[2021-12-25] MEDS: Potassium Chloride 10 MEQ TAB PO SCH (09:32)
[2021-12-25] MEDS: Cholecalciferol (Vitamin D3) 400 UNITS TAB PO SCH (09:32)
[2021-12-25] MEDS: Apixaban 2.5 MG TAB PO SCH ×2 (09:32→22:19)
[2021-12-25] MEDS: Multivit, Therapeutic 1 TAB PO SCH (09:32)
[2021-12-25] MEDS: Megestrol Acetate 40 MG TAB PO SCH ×2 (09:33→22:19)
[2021-12-25] MEDS: Ferrous Sulfate 325 MG TAB PO SCH ×2 (09:34→17:17)
[2021-12-25] MEDS: Saccharomyces boulardii 250 MG CAP PO SCH (09:34)
[2021-12-25] MEDS: Mometasone/Formoterol 60 PUFF AER INH SCH ×2 (09:35→22:25)
[2021-12-25] MEDS: Atorvastatin Calcium 40 MG TAB PO SCH (22:19)
[2021-12-26] MEDS: Vancomycin HCl 750 MG in Sodium Chloride 0.9% 250 ML 250 ML IVPB SCH ×3 (00:57→23:28)
[2021-12-26] MEDS: Acetaminophen 325 MG TAB PO SCH ×4 (00:58→20:14)
[2021-12-26 05:28] LABS: Calc. Creatinine Clearance 75 mL/min (70-130)
[2021-12-26] MEDS: Ferrous Sulfate 325 MG TAB PO SCH ×2 (08:59→18:00)
[2021-12-26] MEDS: Escitalopram Oxalate 10 mg Tablet PO SCH (09:00)
[2021-12-26] MEDS: Zinc Sulfate 220 MG CAP PO SCH (09:01)
[2021-12-26] MEDS: Gabapentin 300 MG CAP PO SCH ×3 (09:01→20:15)
[2021-12-26] MEDS: Multivit, Therapeutic 1 TAB PO SCH (09:01)
[2021-12-26] MEDS: Ascorbic Acid 500 mg Chewable Tablet PO SCH (09:01)
[2021-12-26] MEDS: Cholecalciferol (Vitamin D3) 400 UNITS TAB PO SCH (09:01)
[2021-12-26] MEDS: Apixaban 2.5 MG TAB PO SCH ×2 (09:01→20:16)
[2021-12-26] MEDS: Megestrol Acetate 40 MG TAB PO SCH ×2 (09:01→20:16)
[2021-12-26] MEDS: Saccharomyces boulardii 250 MG CAP PO SCH (09:01)
[2021-12-26] MEDS: Potassium Chloride 10 MEQ TAB PO SCH (09:02)
[2021-12-26] MEDS: Montelukast Sodium 10 mg Tablet PO SCH (09:02)
[2021-12-26] MEDS: Aspirin 81 mg Enteric Coated Tablet PO SCH ×2 (09:02→20:14)
[2021-12-26] MEDS: Magnesium Oxide 400 MG TAB PO SCH ×2 (09:02→20:16)
[2021-12-26] MEDS: Floranex 1 GM Packet PO SCH (09:03)
[2021-12-26] MEDS: Mometasone/Formoterol 60 PUFF AER INH SCH ×2 (09:03→20:19)
[2021-12-26] MEDS: HYDROcodone/Acetaminophen 5/325 mg Tablet PO PRN (19:23)
[2021-12-26] MEDS: Atorvastatin Calcium 40 MG TAB PO SCH (20:16)
[2021-12-27] MEDS: Acetaminophen 325 MG TAB PO SCH ×4 (01:53→21:35)
[2021-12-27 05:06] LABS: #Basophils 0.2 thou/uL (0.0-0.2); #Eosinphils 0.3 thou/uL (0.0-0.7); #Lymphocytes 2.5 thou/uL (1.20-3.40); #Monocytes 0.8 thou/uL (0.11-0.59); #Neutrophils 5.4 thou/uL (1.40-6.50); %Basophils 1.7 % (0.0-1.0); %Eosinophils 3.3 % (0.0-10.0); %Lymphocytes 26.8 % (21.0-51.0); %Monocytes 9.1 % (0.0-10.0); %Neutrophils 59.1 % (42.0-75.0); Hemoglobin 9.5 g/dL (12.0-16.0); Mean Corpuscular Hemoglobin 29.6 pg (27.0-31.0); Mean Corpuscular Volume 89.7 fL (78.0-98.0); Mean Platelet Volume 5.9 fL (7.4-10.4); Platelet Count 506 thou/uL (130-400); RBC Distribution Width 14.6 % (11.5-14.5); Red Blood Cell (RBC) Count 3.19 mill/uL (4.20-5.40); White Blood Cell (WBC) Count 9.2 thou/uL (4.8-10.8)
[2021-12-27 05:32] LABS: ALT (SGPT) 117 U/L (8-55); AST (SGOT) 122 U/L (5-34); Albumin 2.6 g/dL (3.4-4.8); Alkaline Phosphatase 116 U/L (40-110); Anion Gap 14 mmol/L (10-20); BUN (Urea Nitrogen) 17 mg/dL (9.8-20.1); Bilirubin, Total 0.4 mg/dL (0.2-1.2); Calc. Creatinine Clearance 72 mL/min (70-130); Calcium 8.5 mg/dL (7.8-10.44); Carbon Dioxide 21 mmol/L (23-31); Chloride 107 mmol/L (98-107); Globulin 3.5 g/dL (2.4-3.5); Glucose 91 mg/dL (83-110); Potassium 3.9 mmol/L (3.5-5.1); Protein, Total 6.1 g/dL (5.8-8.1); Sodium 138 mmol/L (136-145)
[2021-12-27] MEDS: Ascorbic Acid 500 mg Chewable Tablet PO SCH (09:16)
[2021-12-27] MEDS: Cholecalciferol (Vitamin D3) 400 UNITS TAB PO SCH (09:16)
[2021-12-27] MEDS: Aspirin 81 mg Enteric Coated Tablet PO SCH ×2 (09:16→21:35)
[2021-12-27] MEDS: Gabapentin 300 MG CAP PO SCH ×3 (09:16→21:34)
[2021-12-27] MEDS: Megestrol Acetate 40 MG TAB PO SCH ×2 (09:16→21:34)
[2021-12-27] MEDS: Magnesium Oxide 400 MG TAB PO SCH ×2 (09:16→21:34)
[2021-12-27] MEDS: Ferrous Sulfate 325 MG TAB PO SCH ×2 (09:16→17:35)
[2021-12-27] MEDS: Saccharomyces boulardii 250 MG CAP PO SCH (09:16)
[2021-12-27] MEDS: Escitalopram Oxalate 10 mg Tablet PO SCH (09:17)
[2021-12-27] MEDS: Zinc Sulfate 220 MG CAP PO SCH (09:17)
[2021-12-27] MEDS: Floranex 1 GM Packet PO SCH (09:18)
[2021-12-27] MEDS: Apixaban 2.5 MG TAB PO SCH ×2 (09:18→21:34)
[2021-12-27] MEDS: Potassium Chloride 10 MEQ TAB PO SCH (09:18)
[2021-12-27] MEDS: Mometasone/Formoterol 60 PUFF AER INH SCH ×2 (09:19→21:38)
[2021-12-27] MEDS: Montelukast Sodium 10 mg Tablet PO SCH (09:19)
[2021-12-27] MEDS: Multivit, Therapeutic 1 TAB PO SCH (09:20)
[2021-12-27] MEDS: Vancomycin HCl 750 MG in Sodium Chloride 0.9% 250 ML 250 ML IVPB SCH ×2 (12:24→23:55)
[2021-12-27] MEDS: Atorvastatin Calcium 40 MG TAB PO SCH (21:34)
[2021-12-28] MEDS: Acetaminophen 325 MG TAB PO SCH ×4 (04:07→20:34)
[2021-12-28 05:12] LABS: Calc. Creatinine Clearance 71 mL/min (70-130)
[2021-12-28] MEDS: Apixaban 2.5 MG TAB PO SCH ×2 (09:00→20:33)
[2021-12-28] MEDS: Ascorbic Acid 500 mg Chewable Tablet PO SCH (09:00)
[2021-12-28] MEDS: Gabapentin 300 MG CAP PO SCH ×3 (09:00→20:32)
[2021-12-28] MEDS: Saccharomyces boulardii 250 MG CAP PO SCH (09:00)
[2021-12-28] MEDS: Cholecalciferol (Vitamin D3) 400 UNITS TAB PO SCH (09:02)
[2021-12-28] MEDS: Escitalopram Oxalate 10 mg Tablet PO SCH (09:02)
[2021-12-28] MEDS: Ferrous Sulfate 325 MG TAB PO SCH ×2 (09:02→18:43)
[2021-12-28] MEDS: Montelukast Sodium 10 mg Tablet PO SCH (09:02)
[2021-12-28] MEDS: Zinc Sulfate 220 MG CAP PO SCH (09:02)
[2021-12-28] MEDS: Megestrol Acetate 40 MG TAB PO SCH ×2 (09:03→20:33)
[2021-12-28] MEDS: Multivit, Therapeutic 1 TAB PO SCH (09:03)
[2021-12-28] MEDS: Magnesium Oxide 400 MG TAB PO SCH ×2 (09:03→20:33)
[2021-12-28] MEDS: Potassium Chloride 10 MEQ TAB PO SCH (09:03)
[2021-12-28] MEDS: Aspirin 81 mg Enteric Coated Tablet PO SCH ×2 (09:03→20:32)
[2021-12-28] MEDS: Floranex 1 GM Packet PO SCH (09:04)
[2021-12-28] MEDS: Mometasone/Formoterol 60 PUFF AER INH SCH ×2 (09:05→20:40)
[2021-12-28] MEDS: Vancomycin HCl 750 MG in Sodium Chloride 0.9% 250 ML 250 ML IVPB SCH ×2 (12:43→23:58)
[2021-12-28] MEDS: Atorvastatin Calcium 40 MG TAB PO SCH (20:33)
[2021-12-29] MEDS: Acetaminophen 325 MG TAB PO SCH ×4 (02:02→21:00)
[2021-12-29 05:11] LABS: Calc. Creatinine Clearance 71 mL/min (70-130)
[2021-12-29] MEDS: Floranex 1 GM Packet PO SCH (10:33)
[2021-12-29] MEDS: Escitalopram Oxalate 10 mg Tablet PO SCH (10:33)
[2021-12-29] MEDS: Aspirin 81 mg Enteric Coated Tablet PO SCH ×2 (10:33→20:59)
[2021-12-29] MEDS: Saccharomyces boulardii 250 MG CAP PO SCH (10:33)
[2021-12-29] MEDS: Potassium Chloride 10 MEQ TAB PO SCH (10:33)
[2021-12-29] MEDS: Apixaban 2.5 MG TAB PO SCH ×2 (10:33→21:00)
[2021-12-29] MEDS: Cholecalciferol (Vitamin D3) 400 UNITS TAB PO SCH (10:34)
[2021-12-29] MEDS: Multivit, Therapeutic 1 TAB PO SCH (10:34)
[2021-12-29] MEDS: Gabapentin 300 MG CAP PO SCH ×3 (10:34→21:00)
[2021-12-29] MEDS: Magnesium Oxide 400 MG TAB PO SCH ×2 (10:35→21:00)
[2021-12-29] MEDS: Zinc Sulfate 220 MG CAP PO SCH (10:35)
[2021-12-29] MEDS: Ascorbic Acid 500 mg Chewable Tablet PO SCH (10:35)
[2021-12-29] MEDS: Montelukast Sodium 10 mg Tablet PO SCH (10:35)
[2021-12-29] MEDS: Megestrol Acetate 40 MG TAB PO SCH ×2 (10:35→21:00)
[2021-12-29] MEDS: Ferrous Sulfate 325 MG TAB PO SCH ×2 (10:36→16:47)
[2021-12-29] MEDS: Mometasone/Formoterol 60 PUFF AER INH SCH ×2 (10:36→22:50)
[2021-12-29] MEDS: Vancomycin HCl 750 MG in Sodium Chloride 0.9% 250 ML 250 ML IVPB SCH (13:07)
[2021-12-29] MEDS: Atorvastatin Calcium 40 MG TAB PO SCH (21:00)
[2021-12-30] MEDS: Vancomycin HCl 750 MG in Sodium Chloride 0.9% 250 ML 250 ML IVPB SCH ×2 (00:09→13:01)
[2021-12-30] MEDS: Acetaminophen 325 MG TAB PO SCH ×4 (02:26→22:08)
[2021-12-30 05:26] LABS: Calc. Creatinine Clearance 74 mL/min (70-130)
[2021-12-30] MEDS: Montelukast Sodium 10 mg Tablet PO SCH (10:08)
[2021-12-30] MEDS: Aspirin 81 mg Enteric Coated Tablet PO SCH ×2 (10:09→22:07)
[2021-12-30] MEDS: Floranex 1 GM Packet PO SCH (10:09)
[2021-12-30] MEDS: Escitalopram Oxalate 10 mg Tablet PO SCH (10:10)
[2021-12-30] MEDS: Gabapentin 300 MG CAP PO SCH ×3 (10:10→22:09)
[2021-12-30] MEDS: Saccharomyces boulardii 250 MG CAP PO SCH (10:10)
[2021-12-30] MEDS: Ferrous Sulfate 325 MG TAB PO SCH ×2 (10:11→17:15)
[2021-12-30] MEDS: Zinc Sulfate 220 MG CAP PO SCH (10:12)
[2021-12-30] MEDS: Potassium Chloride 10 MEQ TAB PO SCH (10:12)
[2021-12-30] MEDS: Magnesium Oxide 400 MG TAB PO SCH ×2 (10:12→22:07)
[2021-12-30] MEDS: Ascorbic Acid 500 mg Chewable Tablet PO SCH (10:12)
[2021-12-30] MEDS: Cholecalciferol (Vitamin D3) 400 UNITS TAB PO SCH (10:13)
[2021-12-30] MEDS: Apixaban 2.5 MG TAB PO SCH ×2 (10:13→22:07)
[2021-12-30] MEDS: Multivit, Therapeutic 1 TAB PO SCH (10:14)
[2021-12-30] MEDS: Megestrol Acetate 40 MG TAB PO SCH ×2 (10:14→22:07)
[2021-12-30] MEDS: Mometasone/Formoterol 60 PUFF AER INH SCH ×2 (10:14→22:09)
[2021-12-30] MEDS: Atorvastatin Calcium 40 MG TAB PO SCH (22:07)
[2021-12-31] MEDS: Vancomycin HCl 750 MG in Sodium Chloride 0.9% 250 ML 250 ML IVPB SCH ×2 (00:04→12:40)
[2021-12-31] MEDS: Acetaminophen 325 MG TAB PO SCH ×4 (02:16→22:00)
[2021-12-31 05:45] LABS: Calc. Creatinine Clearance 66 mL/min (70-130)
[2021-12-31] MEDS: Montelukast Sodium 10 mg Tablet PO SCH (10:13)
[2021-12-31] MEDS: Escitalopram Oxalate 10 mg Tablet PO SCH (10:13)
[2021-12-31] MEDS: Zinc Sulfate 220 MG CAP PO SCH (10:13)
[2021-12-31] MEDS: Floranex 1 GM Packet PO SCH (10:14)
[2021-12-31] MEDS: Gabapentin 300 MG CAP PO SCH ×3 (10:14→22:02)
[2021-12-31] MEDS: Megestrol Acetate 40 MG TAB PO SCH ×2 (10:14→22:01)
[2021-12-31] MEDS: Ferrous Sulfate 325 MG TAB PO SCH ×2 (10:15→16:53)
[2021-12-31] MEDS: Magnesium Oxide 400 MG TAB PO SCH ×2 (10:15→22:02)
[2021-12-31] MEDS: Ascorbic Acid 500 mg Chewable Tablet PO SCH (10:15)
[2021-12-31] MEDS: Apixaban 2.5 MG TAB PO SCH ×2 (10:17→22:01)
[2021-12-31] MEDS: Multivit, Therapeutic 1 TAB PO SCH (10:17)
[2021-12-31] MEDS: Cholecalciferol (Vitamin D3) 400 UNITS TAB PO SCH (10:17)
[2021-12-31] MEDS: Aspirin 81 mg Enteric Coated Tablet PO SCH ×2 (10:17→22:01)
[2021-12-31] MEDS: Saccharomyces boulardii 250 MG CAP PO SCH (10:17)
[2021-12-31] MEDS: Mometasone/Formoterol 60 PUFF AER INH SCH ×2 (10:19→22:02)
[2021-12-31] MEDS: Potassium Chloride 10 MEQ TAB PO SCH (10:19)
[2021-12-31 11:22] LABS: Vancomycin, Trough 20.1 ug/mL
[2021-12-31] MEDS: HYDROcodone/Acetaminophen 5/325 mg Tablet PO PRN (14:19)
[2021-12-31] MEDS: Atorvastatin Calcium 40 MG TAB PO SCH (22:01)
[2022-01-01] MEDS: Vancomycin HCl 750 MG in Sodium Chloride 0.9% 250 ML 250 ML IVPB SCH ×2 (00:02→12:37)
[2022-01-01] MEDS: Acetaminophen 325 MG TAB PO SCH ×4 (03:01→20:45)
[2022-01-01 06:18] LABS: Calc. Creatinine Clearance 67 mL/min (70-130)
[2022-01-01] MEDS: Potassium Chloride 10 MEQ TAB PO SCH (10:05)
[2022-01-01] MEDS: Gabapentin 300 MG CAP PO SCH ×3 (10:05→20:44)
[2022-01-01] MEDS: Apixaban 2.5 MG TAB PO SCH ×2 (10:05→20:44)
[2022-01-01] MEDS: Aspirin 81 mg Enteric Coated Tablet PO SCH ×2 (10:05→20:46)
[2022-01-01] MEDS: Fluconazole 100 MG TAB PO SCH (10:19)
[2022-01-01] MEDS: Escitalopram Oxalate 10 mg Tablet PO SCH (10:19)
[2022-01-01] MEDS: Saccharomyces boulardii 250 MG CAP PO SCH (10:19)
[2022-01-01] MEDS: Megestrol Acetate 40 MG TAB PO SCH ×2 (10:19→20:44)
[2022-01-01] MEDS: Montelukast Sodium 10 mg Tablet PO SCH (10:19)
[2022-01-01] MEDS: Multivit, Therapeutic 1 TAB PO SCH (10:20)
[2022-01-01] MEDS: Ferrous Sulfate 325 MG TAB PO SCH ×2 (10:20→17:28)
[2022-01-01] MEDS: Zinc Sulfate 220 MG CAP PO SCH (10:20)
[2022-01-01] MEDS: Cholecalciferol (Vitamin D3) 400 UNITS TAB PO SCH (10:20)
[2022-01-01] MEDS: Magnesium Oxide 400 MG TAB PO SCH ×2 (10:20→20:44)
[2022-01-01] MEDS: Ascorbic Acid 500 mg Chewable Tablet PO SCH (10:20)
[2022-01-01] MEDS: Floranex 1 GM Packet PO SCH (10:21)
[2022-01-01] MEDS: Mometasone/Formoterol 60 PUFF AER INH SCH ×2 (10:21→21:06)
[2022-01-01] MEDS: HYDROcodone/Acetaminophen 5/325 mg Tablet PO PRN (12:41)
[2022-01-01] MEDS: Ibuprofen 200 MG TAB PO PRN (17:32)
[2022-01-01] MEDS: Atorvastatin Calcium 40 MG TAB PO SCH (20:44)
[2022-01-02] MEDS ORDERED: Vancomycin HCl 750 MG VIAL ONE (00:16)
[2022-01-02] MEDS: Vancomycin HCl 750 MG in Sodium Chloride 0.9% 250 ML 250 ML IVPB SCH ×2 (00:22→12:09)
[2022-01-02] MEDS: Acetaminophen 325 MG TAB PO SCH ×4 (02:47→22:26)
[2022-01-02 04:51] LABS: Calc. Creatinine Clearance 66 mL/min (70-130)
[2022-01-02] MEDS: Aspirin 81 mg Enteric Coated Tablet PO SCH ×2 (09:17→22:21)
[2022-01-02] MEDS: Floranex 1 GM Packet PO SCH (09:17)
[2022-01-02] MEDS: Montelukast Sodium 10 mg Tablet PO SCH (09:18)
[2022-01-02] MEDS: Apixaban 2.5 MG TAB PO SCH ×2 (09:19→22:21)
[2022-01-02] MEDS: Cholecalciferol (Vitamin D3) 400 UNITS TAB PO SCH (09:19)
[2022-01-02] MEDS: Saccharomyces boulardii 250 MG CAP PO SCH (09:19)
[2022-01-02] MEDS: Zinc Sulfate 220 MG CAP PO SCH (09:19)
[2022-01-02] MEDS: Ascorbic Acid 500 mg Chewable Tablet PO SCH (09:19)
[2022-01-02] MEDS: Gabapentin 300 MG CAP PO SCH ×3 (09:19→22:21)
[2022-01-02] MEDS: Megestrol Acetate 40 MG TAB PO SCH ×2 (09:19→22:26)
[2022-01-02] MEDS: Ferrous Sulfate 325 MG TAB PO SCH ×2 (09:21→19:11)
[2022-01-02] MEDS: Escitalopram Oxalate 10 mg Tablet PO SCH (09:21)
[2022-01-02] MEDS: Magnesium Oxide 400 MG TAB PO SCH ×2 (09:21→22:21)
[2022-01-02] MEDS: Potassium Chloride 10 MEQ TAB PO SCH (09:21)
[2022-01-02] MEDS: Multivit, Therapeutic 1 TAB PO SCH (09:21)
[2022-01-02] MEDS: Fluconazole 100 MG TAB PO SCH (09:22)
[2022-01-02] MEDS: Mometasone/Formoterol 60 PUFF AER INH SCH ×2 (10:15→22:26)
[2022-01-02] MEDS: Atorvastatin Calcium 40 MG TAB PO SCH (22:21)
[2022-01-02] MEDS: HYDROcodone/Acetaminophen 5/325 mg Tablet PO PRN (22:22)
[2022-01-03] MEDS: Acetaminophen 325 MG TAB PO SCH ×3 (02:22→20:50)
[2022-01-03 05:10] LABS: #Basophils 0.1 thou/uL (0.0-0.2); #Eosinphils 0.2 thou/uL (0.0-0.7); #Lymphocytes 2.8 thou/uL (1.20-3.40); #Neutrophils 8.4 thou/uL (1.40-6.50); %Eosinophils 1.9 % (0.0-10.0); %Lymphocytes 22.4 % (21.0-51.0); %Monocytes 8.2 % (0.0-10.0); %Neutrophils 66.5 % (42.0-75.0); Hemoglobin 9.7 g/dL (12.0-16.0); Mean Corpuscular HGB CONC 33.6 g/dL (32.0-36.0); Mean Corpuscular Hemoglobin 29.4 pg (27.0-31.0); Mean Corpuscular Volume 87.4 fL (78.0-98.0); Mean Platelet Volume 5.8 fL (7.4-10.4); Platelet Count 581 thou/uL (130-400); RBC Distribution Width 14.1 % (11.5-14.5); Red Blood Cell (RBC) Count 3.31 mill/uL (4.20-5.40); White Blood Cell (WBC) Count 12.7 thou/uL (4.8-10.8)
[2022-01-03 05:16] LABS: ALT (SGPT) 72 U/L (8-55); AST (SGOT) 47 U/L (5-34); Albumin 3.1 g/dL (3.4-4.8); Alkaline Phosphatase 110 U/L (40-110); Anion Gap 14 mmol/L (10-20); BUN (Urea Nitrogen) 29 mg/dL (9.8-20.1); Bilirubin, Total 0.2 mg/dL (0.2-1.2); Calc. Creatinine Clearance 70 mL/min (70-130); Calcium 9.4 mg/dL (7.8-10.44); Carbon Dioxide 22 mmol/L (23-31); Chloride 104 mmol/L (98-107); Globulin 4.2 g/dL (2.4-3.5); Glucose 103 mg/dL (83-110); Potassium 4.3 mmol/L (3.5-5.1); Protein, Total 7.3 g/dL (5.8-8.1); Sodium 136 mmol/L (136-145)
[2022-01-03 06:15] VITALS: TEMP 98.5
[2022-01-03] MEDS ORDERED: Cephalexin 250 MG CAP PO SCH (09:00)
[2022-01-03] MEDS: Mometasone/Formoterol 60 PUFF AER INH SCH (09:08)
[2022-01-03] MEDS: Escitalopram Oxalate 10 mg Tablet PO SCH (09:11)
[2022-01-03] MEDS: Gabapentin 300 MG CAP PO SCH ×2 (09:12→20:47)
[2022-01-03] MEDS: Megestrol Acetate 40 MG TAB PO SCH (09:14)
[2022-01-03] MEDS: Fluconazole 100 MG TAB PO SCH (09:15)
[2022-01-03] MEDS: Aspirin 81 mg Enteric Coated Tablet PO SCH (09:15)
[2022-01-03] MEDS: Apixaban 2.5 MG TAB PO SCH (09:15)
[2022-01-03 09:16] VITALS: BP 136/60
[2022-01-03] MEDS: HYDROcodone/Acetaminophen 5/325 mg Tablet PO PRN ×2 (09:27→13:13)
[2022-01-03] MEDS: Ibuprofen 200 MG TAB PO PRN (12:42)
[2022-01-03] MEDS: Ferrous Sulfate 325 MG TAB PO SCH ×2 (12:43→20:50)
[2022-01-03] MEDS: Cholecalciferol (Vitamin D3) 400 UNITS TAB PO SCH (12:44)
[2022-01-03] MEDS: Potassium Chloride 10 MEQ TAB PO SCH (12:44)
[2022-01-03] MEDS: Magnesium Oxide 400 MG TAB PO SCH (12:45)
[2022-01-03] MEDS: Zinc Sulfate 220 MG CAP PO SCH (20:46)
[2022-01-03] MEDS: Saccharomyces boulardii 250 MG CAP PO SCH (20:46)
[2022-01-03] MEDS: Multivit, Therapeutic 1 TAB PO SCH (20:46)
[2022-01-03] MEDS: Floranex 1 GM Packet PO SCH (20:50)
[2022-01-03] MEDS: Montelukast Sodium 10 mg Tablet PO SCH (20:51)
[2022-01-03] MEDS: Ascorbic Acid 500 mg Chewable Tablet PO SCH (20:51)
[2022-01-03] MEDS ORDERED: Ascorbic Acid 500 mg Chewable Tablet PO SCH (21:00)
[2022-01-03] MEDS ORDERED: Floranex 1 GM Packet PO SCH (21:00)
[2022-01-03] MEDS ORDERED: Montelukast Sodium 10 mg Tablet PO SCH (21:00)
== END 2022-01-03 16:10 | disposition short-term general hospital (02) | DRG 872 ==
LOC: BURMED 13:45
PROVIDERS: ADMIT Family Medicine; ATTEND Family Medicine
PROC: 30233N1 Transfusion of Nonautologous Red Blood Cells into Peripheral Vein, Percutaneous Approach (ICD-10-PCS; principal; 2021-12-22)
DX: R78.81 Bacteremia (principal); E44.1 Mild protein-calorie malnutrition; Z68.1 Body mass index [BMI] 19.9 or less, adult; X58.XXXD Exposure to other specified factors, subsequent encounter; B95.62 Methicillin resistant Staphylococcus aureus infection as the cause of diseases classified elsewhere; I48.0 Paroxysmal atrial fibrillation; R33.9 Retention of urine, unspecified; I12.9 Hypertensive chronic kidney disease with stage 1 through stage 4 chronic kidney disease, or unspecified chronic kidney disease; E78.5 Hyperlipidemia, unspecified; L89.152 Pressure ulcer of sacral region, stage 2; I25.10 Atherosclerotic heart disease of native coronary artery without angina pectoris; D64.9 Anemia, unspecified; R53.1 Weakness; L89.629 Pressure ulcer of left heel, unspecified stage; F41.9 Anxiety disorder, unspecified; N18.9 Chronic kidney disease, unspecified; J44.9 Chronic obstructive pulmonary disease, unspecified; E87.6 Hypokalemia; S72.002D Fracture of unspecified part of neck of left femur, subsequent encounter for closed fracture with routine healing; Z79.82 Long term (current) use of aspirin; Z79.899 Other long term (current) drug therapy
CPT/HCPCS: 36415; 36416; 36430; 70450; 70498; 72170; 80053; 80202; 82565; 85025; 86140; 86850; 86900; 86901; 87070; 87205; 94664; 97602; J3370; J7050; P9016; Q0162; S0179

== ENCOUNTER 2022-01-03 16:12 | Emergency (ER) | payer MEDICARE, MEDICAID ==
[2022-01-03] MEDS ORDERED: Iopamidol 370 76% 100 ML VIAL FS ONE (16:13)
[2022-01-03 16:33] LABS: #Basophils 0.2 thou/uL (0.0-0.2); #Eosinphils 0.2 thou/uL (0.0-0.7); #Lymphocytes 2.3 thou/uL (1.20-3.40); #Neutrophils 7.7 thou/uL (1.40-6.50); %Eosinophils 1.8 % (0.0-10.0); %Lymphocytes 20.2 % (21.0-51.0); %Monocytes 8.3 % (0.0-10.0); %Neutrophils 67.7 % (42.0-75.0); Hemoglobin 9.7 g/dL (12.0-16.0); Mean Corpuscular HGB CONC 31.6 g/dL (32.0-36.0); Mean Corpuscular Hemoglobin 28.4 pg (27.0-31.0); Mean Corpuscular Volume 89.8 fL (78.0-98.0); Mean Platelet Volume 5.5 fL (7.4-10.4); Platelet Count 567 thou/uL (130-400); RBC Distribution Width 14.6 % (11.5-14.5); Red Blood Cell (RBC) Count 3.43 mill/uL (4.20-5.40); White Blood Cell (WBC) Count 11.4 thou/uL (4.8-10.8)
[2022-01-03 16:47] LABS: ALT (SGPT) 62 U/L (8-55); AST (SGOT) 34 U/L (5-34); Alkaline Phosphatase 104 U/L (40-110); Anion Gap 12 mmol/L (10-20); BUN (Urea Nitrogen) 29 mg/dL (9.8-20.1); Base Excess-Venous -1.5 mmol/L (-2.0 to 3.0); Bicarbonate (HCO3v) 22.8 mmol/L (22.0-28.0); Bilirubin, Total 0.3 mg/dL (0.2-1.2); CO2 Tension (PvCO2) 36.2 mmHg (42.0-51.0); Calc. Creatinine Clearance 0 mL/min (70-130); Calcium 9.5 mg/dL (7.8-10.44); Calcium, Ionized 1.29 mmol/L (1.15-1.33); Carbon Dioxide 24 mmol/L (23-31); Chloride 102 mmol/L (98-107); Chloride 103 mmol/L (98-107); Globulin 4.1 g/dL (2.4-3.5); Glucose 99 mg/dL (83-110); Hemoglobin - Calc 10.7 g/dL (12.0-16.0); Potassium 4.2 mmol/L (3.5-5.1); Protein, Total 7.1 g/dL (5.8-8.1); Sodium 135 mmol/L (136-145); Sodium 138 mmol/L (138-145); T. Carbon Dioxide 23.9 mmol/L (22.0-28.0); vO2 Saturation-calc 77.5 % (60.0-85.0)
[2022-01-03] MEDS ORDERED: Aspirin Chewable 81 MG TAB ONE (17:35)
[2022-01-03 17:39] LABS: Bilirubin Negative (Negative); Blood, Urine Large (Negative); Clarity Cloudy (Clear); Glucose, Urine (Dipstick) Negative (Negative); Ketone, Urine Negative (Negative); Leukocyte Moderate (Negative); Nitrite Negative (Negative); Protein, Urine (Dipstick) 30 mg/dL (Neg-Trace); Urobilinogen 0.2 mg/dL (Less than 2)
[2022-01-03 17:44] LABS: Bacteria/HPF 2+ HPF (None Seen); RBC/HPF Greater than 50 HPF (0-3); Squamous Epithelial 0-3 HPF (0-3); WBC/HPF 21-50 HPF (0-3)
[2022-01-03] MEDS ORDERED: cefTRIAXone\\ROCEPHIN 1 GM VIAL ONE (19:00)
[2022-01-03] MEDS ORDERED: Sodium Chloride 0.9% 100 ML ONE (19:01)
== END 2022-01-03 19:47 | disposition short-term general hospital (02) ==
LOC: BURERS 16:12
DX: R41.82 Altered mental status, unspecified (principal); R29.708 NIHSS score 8; J44.9 Chronic obstructive pulmonary disease, unspecified; I48.91 Unspecified atrial fibrillation; F17.210 Nicotine dependence, cigarettes, uncomplicated
CPT/HCPCS: 70496; 70498; 71045; 81003; 81015; 82330; 82803; 83880; 84484; 87086; 93005; 96365; J0696; J3490; Q9967

== ENCOUNTER 2022-01-15 12:00 | Inpatient (IN) | payer MEDICARE, MEDICAID ==
[2022-01-15] MEDS ORDERED: Acetaminophen 325 MG TAB PO PRN ×2 (22:36→22:55)
[2022-01-15] MEDS ORDERED: Acetaminophen 650 MG Suppository PR PRN (22:36)
[2022-01-15] MEDS ORDERED: Albuterol Sulfate 2.5 mg/3 ml Neb NEB PRN (22:39)
[2022-01-15] MEDS ORDERED: Loperamide HCl 2 MG CAP PO PRN (22:39)
[2022-01-15] MEDS ORDERED: Artificial Tear Sol 15 ML BOT EA EYE PRN (22:39)
[2022-01-15] MEDS ORDERED: Albuterol 200 PUFF (6.7GM INHALER) INH PRN (22:51)
[2022-01-15] MEDS ORDERED: Arformoterol 15 MCG/2 ML NEB NEB PRN (22:52)
[2022-01-15 23:40] VITALS: BMI 17.6
[2022-01-16] MEDS: Acetaminophen 325 MG TAB PO SCH ×4 (02:06→20:05)
[2022-01-16] MEDS: Mometasone/Formoterol 60 PUFF AER INH SCH ×2 (06:09→17:38)
[2022-01-16] MEDS: Dronedarone HCl 400 MG TAB PO SCH ×2 (08:23→17:37)
[2022-01-16] MEDS: Senokot S 8.6-50 MG TAB PO SCH ×2 (08:23→20:04)
[2022-01-16] MEDS: Magnesium Oxide 400 MG TAB PO SCH ×2 (08:23→20:04)
[2022-01-16] MEDS: Floranex 1 GM Packet PO SCH (08:23)
[2022-01-16] MEDS: Doxycycline 100 MG CAP PO SCH ×2 (08:23→20:04)
[2022-01-16] MEDS: Apixaban 5 MG TAB PO SCH ×2 (08:23→20:05)
[2022-01-16] MEDS: Diltiazem HCl SR 60 mg Capsule PO SCH ×2 (08:24→20:04)
[2022-01-16] MEDS: Gabapentin 300 MG CAP PO SCH ×3 (08:24→20:05)
[2022-01-16] MEDS: Aspirin 81 mg Enteric Coated Tablet PO SCH (08:24)
[2022-01-16] MEDS: Multivitamin W/ Minerals 1 TAB PO SCH (08:28)
[2022-01-16] MEDS: Polyethylene Glycol 3350 17 GM Packet PO SCH (08:29)
[2022-01-16] MEDS ORDERED: Cholecalciferol (Vitamin D3) 400 UNITS TAB PO SCH (09:00)
[2022-01-16] MEDS ORDERED: Ascorbic Acid 500 mg Chewable Tablet PO SCH (09:00)
[2022-01-16] MEDS ORDERED: Atorvastatin Calcium 40 MG TAB PO SCH (09:00)
[2022-01-16] MEDS ORDERED: Zinc Sulfate 220 MG CAP PO SCH (09:00)
[2022-01-16] MEDS ORDERED: Enoxaparin Sodium 30 MG/0.3 ML SYRINGE SC SCH (09:00)
[2022-01-17] MEDS: Acetaminophen 325 MG TAB PO SCH ×4 (02:05→21:11)
[2022-01-17] MEDS: Mometasone/Formoterol 60 PUFF AER INH SCH ×2 (06:02→21:02)
[2022-01-17] MEDS: Apixaban 5 MG TAB PO SCH ×2 (09:12→21:08)
[2022-01-17] MEDS: Magnesium Oxide 400 MG TAB PO SCH ×2 (09:12→21:06)
[2022-01-17] MEDS: Doxycycline 100 MG CAP PO SCH ×2 (09:13→21:09)
[2022-01-17] MEDS: Multivitamin W/ Minerals 1 TAB PO SCH (09:13)
[2022-01-17] MEDS: Aspirin 81 mg Enteric Coated Tablet PO SCH (09:13)
[2022-01-17] MEDS: Senokot S 8.6-50 MG TAB PO SCH ×2 (09:13→21:08)
[2022-01-17] MEDS: Gabapentin 300 MG CAP PO SCH ×3 (09:13→21:09)
[2022-01-17] MEDS: Polyethylene Glycol 3350 17 GM Packet PO SCH (09:15)
[2022-01-17] MEDS: Floranex 1 GM Packet PO SCH (09:16)
[2022-01-17] MEDS: Diltiazem HCl SR 60 mg Capsule PO SCH ×2 (09:16→21:11)
[2022-01-17] MEDS: Dronedarone HCl 400 MG TAB PO SCH ×2 (09:16→17:38)
[2022-01-17] MEDS ORDERED: Lidocaine 5% Patch TD SCH (11:15)
[2022-01-17] MEDS: traMADol HCl 50 MG TAB PO PRN (12:01)
[2022-01-17] MEDS: Atorvastatin Calcium 40 MG TAB PO SCH (21:06)
[2022-01-17] MEDS: Ascorbic Acid 500 mg Chewable Tablet PO SCH (21:07)
[2022-01-17] MEDS: Megestrol Acetate 40 MG TAB PO SCH (21:07)
[2022-01-17] MEDS: Cholecalciferol (Vitamin D3) 400 UNITS TAB PO SCH (21:08)
[2022-01-17] MEDS: Zinc Sulfate 220 MG CAP PO SCH (21:08)
[2022-01-17] MEDS: Transdermal Patch Removal TOP SCH (21:18)
[2022-01-18] MEDS: Acetaminophen 325 MG TAB PO SCH ×4 (02:02→20:23)
[2022-01-18 05:55] LABS: Hemoglobin 9.1 g/dL (12.0-16.0); Platelet Count 426 thou/uL (130-400)
[2022-01-18] MEDS: Dronedarone HCl 400 MG TAB PO SCH ×2 (08:01→18:39)
[2022-01-18] MEDS: Gabapentin 300 MG CAP PO SCH ×3 (08:01→20:23)
[2022-01-18] MEDS: Apixaban 5 MG TAB PO SCH ×2 (08:02→20:22)
[2022-01-18] MEDS: Megestrol Acetate 40 MG TAB PO SCH ×2 (08:03→20:22)
[2022-01-18] MEDS: Doxycycline 100 MG CAP PO SCH ×2 (10:02→20:22)
[2022-01-18] MEDS: Multivitamin W/ Minerals 1 TAB PO SCH (10:02)
[2022-01-18] MEDS: Magnesium Oxide 400 MG TAB PO SCH ×2 (10:03→20:22)
[2022-01-18] MEDS: Diltiazem HCl SR 60 mg Capsule PO SCH ×2 (10:03→20:22)
[2022-01-18] MEDS: Floranex 1 GM Packet PO SCH (10:03)
[2022-01-18] MEDS: Aspirin 81 mg Enteric Coated Tablet PO SCH (10:03)
[2022-01-18] MEDS: Lidocaine 5% Patch TD SCH (10:03)
[2022-01-18] MEDS: Senokot S 8.6-50 MG TAB PO SCH ×2 (10:03→20:21)
[2022-01-18] MEDS: Mometasone/Formoterol 60 PUFF AER INH SCH ×2 (10:04→20:24)
[2022-01-18] MEDS: Polyethylene Glycol 3350 17 GM Packet PO SCH (10:04)
[2022-01-18] MEDS: Ascorbic Acid 500 mg Chewable Tablet PO SCH (20:22)
[2022-01-18] MEDS: Atorvastatin Calcium 40 MG TAB PO SCH (20:22)
[2022-01-18] MEDS: Cholecalciferol (Vitamin D3) 400 UNITS TAB PO SCH (20:22)
[2022-01-18] MEDS: Zinc Sulfate 220 MG CAP PO SCH (20:22)
[2022-01-18] MEDS: Transdermal Patch Removal TOP SCH (20:24)
[2022-01-19] MEDS: Acetaminophen 325 MG TAB PO SCH ×4 (01:25→20:32)
[2022-01-19] MEDS: Gabapentin 300 MG CAP PO SCH ×3 (08:46→20:33)
[2022-01-19] MEDS: Apixaban 5 MG TAB PO SCH ×2 (08:46→20:33)
[2022-01-19] MEDS: Dronedarone HCl 400 MG TAB PO SCH ×2 (08:46→18:16)
[2022-01-19] MEDS: Senokot S 8.6-50 MG TAB PO SCH ×2 (08:46→20:35)
[2022-01-19] MEDS: Aspirin 81 mg Enteric Coated Tablet PO SCH (08:46)
[2022-01-19] MEDS: Diltiazem HCl SR 60 mg Capsule PO SCH ×2 (08:47→20:33)
[2022-01-19] MEDS: Magnesium Oxide 400 MG TAB PO SCH ×2 (08:47→20:34)
[2022-01-19] MEDS: Doxycycline 100 MG CAP PO SCH ×2 (08:47→20:33)
[2022-01-19] MEDS: Floranex 1 GM Packet PO SCH (08:47)
[2022-01-19] MEDS: Multivitamin W/ Minerals 1 TAB PO SCH (08:47)
[2022-01-19] MEDS: Megestrol Acetate 40 MG TAB PO SCH ×2 (08:48→20:34)
[2022-01-19] MEDS: Lidocaine 5% Patch TD SCH (08:48)
[2022-01-19] MEDS: Mometasone/Formoterol 60 PUFF AER INH SCH ×2 (08:56→20:34)
[2022-01-19] MEDS: traMADol HCl 50 MG TAB PO PRN (11:08)
[2022-01-19] MEDS: Polyethylene Glycol 3350 17 GM Packet PO SCH (14:26)
[2022-01-19] MEDS: Atorvastatin Calcium 40 MG TAB PO SCH (20:32)
[2022-01-19] MEDS: Zinc Sulfate 220 MG CAP PO SCH (20:33)
[2022-01-19] MEDS: Transdermal Patch Removal TOP SCH (20:34)
[2022-01-19] MEDS: Cholecalciferol (Vitamin D3) 400 UNITS TAB PO SCH (20:34)
[2022-01-19] MEDS: Ascorbic Acid 500 mg Chewable Tablet PO SCH (20:34)
[2022-01-20] MEDS: Acetaminophen 325 MG TAB PO SCH ×4 (01:04→20:27)
[2022-01-20] MEDS: Gabapentin 300 MG CAP PO SCH ×3 (08:36→20:26)
[2022-01-20] MEDS: Doxycycline 100 MG CAP PO SCH ×2 (08:38→20:29)
[2022-01-20] MEDS: Megestrol Acetate 40 MG TAB PO SCH ×2 (08:38→20:27)
[2022-01-20] MEDS: Multivitamin W/ Minerals 1 TAB PO SCH (08:38)
[2022-01-20] MEDS: Dronedarone HCl 400 MG TAB PO SCH ×2 (08:38→17:34)
[2022-01-20] MEDS: Polyethylene Glycol 3350 17 GM Packet PO SCH (08:38)
[2022-01-20] MEDS: Apixaban 5 MG TAB PO SCH ×2 (08:38→20:26)
[2022-01-20] MEDS: Magnesium Oxide 400 MG TAB PO SCH ×2 (08:38→20:29)
[2022-01-20] MEDS: Senokot S 8.6-50 MG TAB PO SCH ×2 (08:38→20:26)
[2022-01-20] MEDS: Floranex 1 GM Packet PO SCH (08:38)
[2022-01-20] MEDS: Aspirin 81 mg Enteric Coated Tablet PO SCH (08:38)
[2022-01-20] MEDS: Lidocaine 5% Patch TD SCH (08:40)
[2022-01-20] MEDS: Diltiazem HCl SR 60 mg Capsule PO SCH ×2 (08:47→20:29)
[2022-01-20] MEDS: Mometasone/Formoterol 60 PUFF AER INH SCH ×2 (08:48→20:24)
[2022-01-20] MEDS: Zinc Sulfate 220 MG CAP PO SCH (20:26)
[2022-01-20] MEDS: Ascorbic Acid 500 mg Chewable Tablet PO SCH (20:28)
[2022-01-20] MEDS: Atorvastatin Calcium 40 MG TAB PO SCH (20:29)
[2022-01-20] MEDS: Cholecalciferol (Vitamin D3) 400 UNITS TAB PO SCH (20:29)
[2022-01-20] MEDS: Transdermal Patch Removal TOP SCH (20:33)
[2022-01-21] MEDS: Acetaminophen 325 MG TAB PO SCH ×4 (01:49→21:30)
[2022-01-21] MEDS: Polyethylene Glycol 3350 17 GM Packet PO SCH (09:06)
[2022-01-21] MEDS: Diltiazem HCl SR 60 mg Capsule PO SCH ×2 (09:07→21:30)
[2022-01-21] MEDS: Apixaban 5 MG TAB PO SCH ×2 (09:07→21:30)
[2022-01-21] MEDS: Floranex 1 GM Packet PO SCH (09:07)
[2022-01-21] MEDS: Magnesium Oxide 400 MG TAB PO SCH ×2 (09:08→21:31)
[2022-01-21] MEDS: Megestrol Acetate 40 MG TAB PO SCH ×2 (09:08→21:31)
[2022-01-21] MEDS: Gabapentin 300 MG CAP PO SCH ×3 (09:08→21:31)
[2022-01-21] MEDS: Dronedarone HCl 400 MG TAB PO SCH ×2 (09:08→17:41)
[2022-01-21] MEDS: Senokot S 8.6-50 MG TAB PO SCH ×2 (09:08→21:30)
[2022-01-21] MEDS: Doxycycline 100 MG CAP PO SCH ×2 (09:08→21:31)
[2022-01-21] MEDS: Multivitamin W/ Minerals 1 TAB PO SCH (09:08)
[2022-01-21] MEDS: Aspirin 81 mg Enteric Coated Tablet PO SCH (09:09)
[2022-01-21] MEDS: Lidocaine 5% Patch TD SCH (09:09)
[2022-01-21] MEDS: Mometasone/Formoterol 60 PUFF AER INH SCH ×2 (09:22→21:39)
[2022-01-21] MEDS: Zinc Sulfate 220 MG CAP PO SCH (21:30)
[2022-01-21] MEDS: Ascorbic Acid 500 mg Chewable Tablet PO SCH (21:31)
[2022-01-21] MEDS: Atorvastatin Calcium 40 MG TAB PO SCH (21:31)
[2022-01-21] MEDS: Cholecalciferol (Vitamin D3) 400 UNITS TAB PO SCH (21:32)
[2022-01-21] MEDS: Transdermal Patch Removal TOP SCH (21:33)
[2022-01-22] MEDS: Acetaminophen 325 MG TAB PO SCH ×4 (02:07→21:15)
[2022-01-22 08:57] LABS: Hemoglobin 9.1 g/dL (12.0-16.0); Mean Corpuscular HGB CONC 33.4 g/dL (32.0-36.0); Mean Corpuscular Hemoglobin 29.7 pg (27.0-31.0); Mean Corpuscular Volume 88.9 fL (78.0-98.0); Mean Platelet Volume 5.6 fL (7.4-10.4); Platelet Count 453 thou/uL (130-400); Red Blood Cell (RBC) Count 3.05 mill/uL (4.20-5.40); White Blood Cell (WBC) Count 11.8 thou/uL (4.8-10.8)
[2022-01-22 09:06] LABS: Anion Gap 15 mmol/L (10-20); BUN (Urea Nitrogen) 12 mg/dL (9.8-20.1); Calc. Creatinine Clearance 57 mL/min (70-130); Carbon Dioxide 24 mmol/L (23-31); Chloride 104 mmol/L (98-107); Glucose 88 mg/dL (83-110); Potassium 3.4 mmol/L (3.5-5.1); Sodium 140 mmol/L (136-145)
[2022-01-22] MEDS: Lidocaine 5% Patch TD SCH (09:13)
[2022-01-22] MEDS: Doxycycline 100 MG CAP PO SCH ×2 (09:15→21:17)
[2022-01-22] MEDS: Gabapentin 300 MG CAP PO SCH ×3 (09:15→21:16)
[2022-01-22] MEDS: Dronedarone HCl 400 MG TAB PO SCH ×2 (09:15→18:03)
[2022-01-22] MEDS: Megestrol Acetate 40 MG TAB PO SCH ×2 (09:15→21:17)
[2022-01-22] MEDS: Floranex 1 GM Packet PO SCH (09:16)
[2022-01-22] MEDS: Mometasone/Formoterol 60 PUFF AER INH SCH ×2 (09:16→21:23)
[2022-01-22] MEDS ORDERED: Proctozone-HC 30 GM TUBE TOP PRN (09:43)
[2022-01-22] MEDS: Multivitamin W/ Minerals 1 TAB PO SCH (11:20)
[2022-01-22] MEDS: Magnesium Oxide 400 MG TAB PO SCH ×2 (11:20→21:17)
[2022-01-22] MEDS: Diltiazem HCl SR 60 mg Capsule PO SCH ×2 (11:21→21:16)
[2022-01-22] MEDS: Polyethylene Glycol 3350 17 GM Packet PO SCH (11:21)
[2022-01-22] MEDS: Senokot S 8.6-50 MG TAB PO SCH ×2 (11:21→21:26)
[2022-01-22] MEDS: Zinc Sulfate 220 MG CAP PO SCH (21:16)
[2022-01-22] MEDS: Cholecalciferol (Vitamin D3) 400 UNITS TAB PO SCH (21:17)
[2022-01-22] MEDS: Ascorbic Acid 500 mg Chewable Tablet PO SCH (21:17)
[2022-01-22] MEDS: Atorvastatin Calcium 40 MG TAB PO SCH (21:17)
[2022-01-22] MEDS: Transdermal Patch Removal TOP SCH (21:58)
[2022-01-23] MEDS: Acetaminophen 325 MG TAB PO SCH ×4 (01:09→20:36)
[2022-01-23] MEDS: Gabapentin 300 MG CAP PO SCH ×3 (10:37→20:38)
[2022-01-23] MEDS: Lidocaine 5% Patch TD SCH (10:37)
[2022-01-23] MEDS: Senokot S 8.6-50 MG TAB PO SCH ×2 (10:38→20:36)
[2022-01-23] MEDS: Floranex 1 GM Packet PO SCH (10:38)
[2022-01-23] MEDS: Dronedarone HCl 400 MG TAB PO SCH ×2 (10:38→18:05)
[2022-01-23] MEDS: Doxycycline 100 MG CAP PO SCH ×2 (10:38→20:37)
[2022-01-23] MEDS: Megestrol Acetate 40 MG TAB PO SCH ×2 (10:39→20:37)
[2022-01-23] MEDS: Diltiazem HCl SR 60 mg Capsule PO SCH ×2 (10:39→20:38)
[2022-01-23] MEDS: Mometasone/Formoterol 60 PUFF AER INH SCH ×2 (10:40→20:45)
[2022-01-23] MEDS: Multivitamin W/ Minerals 1 TAB PO SCH (10:40)
[2022-01-23] MEDS: Polyethylene Glycol 3350 17 GM Packet PO SCH (10:40)
[2022-01-23] MEDS: Magnesium Oxide 400 MG TAB PO SCH ×2 (10:40→20:38)
[2022-01-23] MEDS: traMADol HCl 50 MG TAB PO PRN (10:47)
[2022-01-23] MEDS: Ascorbic Acid 500 mg Chewable Tablet PO SCH (20:37)
[2022-01-23] MEDS: Atorvastatin Calcium 40 MG TAB PO SCH (20:37)
[2022-01-23] MEDS: Zinc Sulfate 220 MG CAP PO SCH (20:37)
[2022-01-23] MEDS: Cholecalciferol (Vitamin D3) 400 UNITS TAB PO SCH (20:38)
[2022-01-23] MEDS: Transdermal Patch Removal TOP SCH (20:44)
[2022-01-24] MEDS: Acetaminophen 325 MG TAB PO SCH ×4 (02:04→20:00)
[2022-01-24] MEDS: Potassium Chloride 10 MEQ TAB PO SCH (07:56)
[2022-01-24] MEDS: Dronedarone HCl 400 MG TAB PO SCH ×2 (07:57→18:23)
[2022-01-24] MEDS: Senokot S 8.6-50 MG TAB PO SCH ×2 (09:33→22:13)
[2022-01-24] MEDS: Aspirin 81 mg Enteric Coated Tablet PO SCH (09:33)
[2022-01-24] MEDS: Polyethylene Glycol 3350 17 GM Packet PO SCH (09:33)
[2022-01-24] MEDS: Floranex 1 GM Packet PO SCH (09:33)
[2022-01-24] MEDS: Lidocaine 5% Patch TD SCH (09:33)
[2022-01-24] MEDS: Diltiazem HCl SR 60 mg Capsule PO SCH ×2 (09:33→22:13)
[2022-01-24] MEDS: Gabapentin 300 MG CAP PO SCH ×3 (09:34→22:15)
[2022-01-24] MEDS: Magnesium Oxide 400 MG TAB PO SCH ×2 (09:35→22:14)
[2022-01-24] MEDS: Mometasone/Formoterol 60 PUFF AER INH SCH ×2 (09:35→22:15)
[2022-01-24] MEDS: Doxycycline 100 MG CAP PO SCH ×2 (09:35→22:13)
[2022-01-24] MEDS: Apixaban 5 MG TAB PO SCH ×2 (09:35→22:13)
[2022-01-24] MEDS: Megestrol Acetate 40 MG TAB PO SCH ×2 (09:35→22:14)
[2022-01-24] MEDS: Multivitamin W/ Minerals 1 TAB PO SCH (09:35)
[2022-01-24] MEDS: traMADol HCl 50 MG TAB PO PRN (09:42)
[2022-01-24] MEDS: HYDROcodone/Acetaminophen 5/325 mg Tablet PO PRN ×2 (13:39→22:17)
[2022-01-24] MEDS: Zinc Sulfate 220 MG CAP PO SCH (22:13)
[2022-01-24] MEDS: Atorvastatin Calcium 40 MG TAB PO SCH (22:13)
[2022-01-24] MEDS: Cholecalciferol (Vitamin D3) 400 UNITS TAB PO SCH (22:13)
[2022-01-24] MEDS: Ascorbic Acid 500 mg Chewable Tablet PO SCH (22:14)
[2022-01-24] MEDS: Transdermal Patch Removal TOP SCH (22:14)
[2022-01-25] MEDS: Acetaminophen 325 MG TAB PO SCH ×4 (05:11→21:28)
[2022-01-25] MEDS: Potassium Chloride 10 MEQ TAB PO SCH (08:32)
[2022-01-25] MEDS: Megestrol Acetate 40 MG TAB PO SCH ×2 (08:32→21:29)
[2022-01-25] MEDS: Dronedarone HCl 400 MG TAB PO SCH ×2 (08:32→17:39)
[2022-01-25] MEDS: Senokot S 8.6-50 MG TAB PO SCH ×2 (08:32→21:27)
[2022-01-25] MEDS: Floranex 1 GM Packet PO SCH (08:32)
[2022-01-25] MEDS: Gabapentin 300 MG CAP PO SCH ×3 (08:33→21:29)
[2022-01-25] MEDS: Apixaban 5 MG TAB PO SCH ×2 (08:33→21:30)
[2022-01-25] MEDS: Doxycycline 100 MG CAP PO SCH ×2 (08:33→21:29)
[2022-01-25] MEDS: Diltiazem HCl SR 60 mg Capsule PO SCH ×2 (08:34→21:30)
[2022-01-25] MEDS: Aspirin 81 mg Enteric Coated Tablet PO SCH (08:34)
[2022-01-25] MEDS: Magnesium Oxide 400 MG TAB PO SCH ×2 (08:35→21:38)
[2022-01-25] MEDS: Lidocaine 5% Patch TD SCH (08:35)
[2022-01-25] MEDS: Mometasone/Formoterol 60 PUFF AER INH SCH ×2 (08:35→21:30)
[2022-01-25] MEDS: Polyethylene Glycol 3350 17 GM Packet PO SCH (08:36)
[2022-01-25] MEDS: Multivitamin W/ Minerals 1 TAB PO SCH (08:36)
[2022-01-25] MEDS: traMADol HCl 50 MG TAB PO PRN (10:13)
[2022-01-25] MEDS: Transdermal Patch Removal TOP SCH (20:00)
[2022-01-25] MEDS: Cholecalciferol (Vitamin D3) 400 UNITS TAB PO SCH (21:27)
[2022-01-25] MEDS: Zinc Sulfate 220 MG CAP PO SCH (21:27)
[2022-01-25] MEDS: Atorvastatin Calcium 40 MG TAB PO SCH (21:27)
[2022-01-25] MEDS: Ascorbic Acid 500 mg Chewable Tablet PO SCH (21:29)
[2022-01-26] MEDS: Acetaminophen 325 MG TAB PO SCH ×4 (01:49→20:52)
[2022-01-26] MEDS: Lidocaine 5% Patch TD SCH (08:32)
[2022-01-26] MEDS: Gabapentin 300 MG CAP PO SCH ×3 (08:32→20:51)
[2022-01-26] MEDS: Senokot S 8.6-50 MG TAB PO SCH ×2 (08:34→20:50)
[2022-01-26] MEDS: Diltiazem HCl SR 60 mg Capsule PO SCH ×2 (08:35→20:50)
[2022-01-26] MEDS: Multivitamin W/ Minerals 1 TAB PO SCH (08:35)
[2022-01-26] MEDS: Megestrol Acetate 40 MG TAB PO SCH ×2 (08:36→20:51)
[2022-01-26] MEDS: Doxycycline 100 MG CAP PO SCH ×2 (08:36→20:51)
[2022-01-26] MEDS: Floranex 1 GM Packet PO SCH (08:37)
[2022-01-26] MEDS: Potassium Chloride 10 MEQ TAB PO SCH (08:37)
[2022-01-26] MEDS: Dronedarone HCl 400 MG TAB PO SCH ×2 (08:37→18:07)
[2022-01-26] MEDS: Aspirin 81 mg Enteric Coated Tablet PO SCH (08:37)
[2022-01-26] MEDS: Apixaban 5 MG TAB PO SCH ×2 (08:39→20:51)
[2022-01-26] MEDS: Polyethylene Glycol 3350 17 GM Packet PO SCH (08:39)
[2022-01-26] MEDS: Magnesium Oxide 400 MG TAB PO SCH ×2 (08:39→20:51)
[2022-01-26] MEDS: Mometasone/Formoterol 60 PUFF AER INH SCH ×2 (08:40→20:53)
[2022-01-26] MEDS: Zinc Sulfate 220 MG CAP PO SCH (20:51)
[2022-01-26] MEDS: Cholecalciferol (Vitamin D3) 400 UNITS TAB PO SCH (20:51)
[2022-01-26] MEDS: Atorvastatin Calcium 40 MG TAB PO SCH (20:51)
[2022-01-26] MEDS: Ascorbic Acid 500 mg Chewable Tablet PO SCH (20:51)
[2022-01-26] MEDS: Transdermal Patch Removal TOP SCH (20:55)
[2022-01-26] MEDS: HYDROcodone/Acetaminophen 5/325 mg Tablet PO PRN (21:59)
[2022-01-27] MEDS: Acetaminophen 325 MG TAB PO SCH ×4 (02:15→21:22)
[2022-01-27] MEDS: HYDROcodone/Acetaminophen 5/325 mg Tablet PO PRN ×2 (06:06→11:27)
[2022-01-27] MEDS: Lidocaine 5% Patch TD SCH (08:05)
[2022-01-27] MEDS: Magnesium Oxide 400 MG TAB PO SCH ×2 (08:05→21:24)
[2022-01-27] MEDS: Senokot S 8.6-50 MG TAB PO SCH ×2 (08:05→21:23)
[2022-01-27] MEDS: Megestrol Acetate 40 MG TAB PO SCH ×2 (08:05→21:24)
[2022-01-27] MEDS: Diltiazem HCl SR 60 mg Capsule PO SCH ×2 (08:06→21:23)
[2022-01-27] MEDS: Polyethylene Glycol 3350 17 GM Packet PO SCH (08:06)
[2022-01-27] MEDS: Dronedarone HCl 400 MG TAB PO SCH ×2 (08:06→17:16)
[2022-01-27] MEDS: Apixaban 5 MG TAB PO SCH ×2 (08:06→21:24)
[2022-01-27] MEDS: Multivitamin W/ Minerals 1 TAB PO SCH (08:06)
[2022-01-27] MEDS: Floranex 1 GM Packet PO SCH (08:06)
[2022-01-27] MEDS: Gabapentin 300 MG CAP PO SCH ×3 (08:06→21:23)
[2022-01-27] MEDS: Aspirin 81 mg Enteric Coated Tablet PO SCH (08:07)
[2022-01-27] MEDS: Potassium Chloride 10 MEQ TAB PO SCH (08:07)
[2022-01-27] MEDS: Doxycycline 100 MG CAP PO SCH ×2 (08:07→21:23)
[2022-01-27] MEDS: Mometasone/Formoterol 60 PUFF AER INH SCH ×2 (08:10→21:24)
[2022-01-27] MEDS: Zinc Sulfate 220 MG CAP PO SCH (21:23)
[2022-01-27] MEDS: Atorvastatin Calcium 40 MG TAB PO SCH (21:23)
[2022-01-27] MEDS: Cholecalciferol (Vitamin D3) 400 UNITS TAB PO SCH (21:24)
[2022-01-27] MEDS: Ascorbic Acid 500 mg Chewable Tablet PO SCH (21:24)
[2022-01-27] MEDS: Transdermal Patch Removal TOP SCH (22:05)
[2022-01-28] MEDS: Acetaminophen 325 MG TAB PO SCH ×4 (02:57→22:39)
[2022-01-28 05:45] LABS: Hemoglobin 8.3 g/dL (12.0-16.0); Platelet Count 433 thou/uL (130-400)
[2022-01-28] MEDS ORDERED: Apixaban 5 MG TAB PO SCH (07:30)
[2022-01-28] MEDS: Aspirin 81 mg Enteric Coated Tablet PO SCH (08:45)
[2022-01-28] MEDS: Magnesium Oxide 400 MG TAB PO SCH ×2 (08:46→22:44)
[2022-01-28] MEDS: Megestrol Acetate 40 MG TAB PO SCH ×2 (08:46→22:42)
[2022-01-28] MEDS: Diltiazem HCl SR 60 mg Capsule PO SCH ×2 (08:46→22:52)
[2022-01-28] MEDS: Senokot S 8.6-50 MG TAB PO SCH ×2 (08:46→22:44)
[2022-01-28] MEDS: Multivitamin W/ Minerals 1 TAB PO SCH (08:46)
[2022-01-28] MEDS: Apixaban 2.5 MG TAB PO SCH ×2 (08:47→22:42)
[2022-01-28] MEDS: Ferrous Sulfate 325 MG TAB PO SCH (08:47)
[2022-01-28] MEDS: Potassium Chloride 10 MEQ TAB PO SCH (08:47)
[2022-01-28] MEDS: Doxycycline 100 MG CAP PO SCH ×2 (08:47→22:43)
[2022-01-28] MEDS: Floranex 1 GM Packet PO SCH (08:51)
[2022-01-28] MEDS: Dronedarone HCl 400 MG TAB PO SCH ×2 (08:51→17:20)
[2022-01-28] MEDS: Gabapentin 300 MG CAP PO SCH ×3 (08:55→22:29)
[2022-01-28] MEDS: Lidocaine 5% Patch TD SCH ×2 (08:55→19:35)
[2022-01-28] MEDS: Polyethylene Glycol 3350 17 GM Packet PO SCH (08:55)
[2022-01-28] MEDS: Mometasone/Formoterol 60 PUFF AER INH SCH ×2 (08:57→22:52)
[2022-01-28] MEDS: HYDROcodone/Acetaminophen 5/325 mg Tablet PO PRN (11:10)
[2022-01-28] MEDS: traMADol HCl 50 MG TAB PO PRN ×2 (17:25→22:18)
[2022-01-28] MEDS: Transdermal Patch Removal TOP SCH (22:30)
[2022-01-28] MEDS: Atorvastatin Calcium 40 MG TAB PO SCH (22:43)
[2022-01-28] MEDS: Cholecalciferol (Vitamin D3) 400 UNITS TAB PO SCH (22:43)
[2022-01-28] MEDS: Ascorbic Acid 500 mg Chewable Tablet PO SCH (22:43)
[2022-01-28] MEDS: Zinc Sulfate 220 MG CAP PO SCH (22:44)
[2022-01-29] MEDS: Acetaminophen 325 MG TAB PO SCH ×4 (03:24→21:45)
[2022-01-29] MEDS: Lidocaine 5% Patch TD SCH (09:22)
[2022-01-29] MEDS: Dronedarone HCl 400 MG TAB PO SCH ×2 (09:22→17:51)
[2022-01-29] MEDS: Polyethylene Glycol 3350 17 GM Packet PO SCH (09:22)
[2022-01-29] MEDS: Gabapentin 300 MG CAP PO SCH ×3 (09:22→21:44)
[2022-01-29] MEDS: Floranex 1 GM Packet PO SCH (09:22)
[2022-01-29] MEDS: Senokot S 8.6-50 MG TAB PO SCH ×2 (09:23→21:45)
[2022-01-29] MEDS: Ferrous Sulfate 325 MG TAB PO SCH (09:23)
[2022-01-29] MEDS: Aspirin 81 mg Enteric Coated Tablet PO SCH (09:23)
[2022-01-29] MEDS: Diltiazem HCl SR 60 mg Capsule PO SCH ×2 (09:23→21:45)
[2022-01-29] MEDS: Apixaban 2.5 MG TAB PO SCH ×2 (09:23→21:45)
[2022-01-29] MEDS: Multivitamin W/ Minerals 1 TAB PO SCH (09:24)
[2022-01-29] MEDS: Potassium Chloride 10 MEQ TAB PO SCH (09:24)
[2022-01-29] MEDS: Megestrol Acetate 40 MG TAB PO SCH ×2 (09:24→21:45)
[2022-01-29] MEDS: Magnesium Oxide 400 MG TAB PO SCH ×2 (09:24→21:45)
[2022-01-29] MEDS: Doxycycline 100 MG CAP PO SCH ×2 (09:24→21:45)
[2022-01-29] MEDS: Mometasone/Formoterol 60 PUFF AER INH SCH ×2 (09:25→21:46)
[2022-01-29] MEDS: Zinc Sulfate 220 MG CAP PO SCH (21:44)
[2022-01-29] MEDS: Ascorbic Acid 500 mg Chewable Tablet PO SCH (21:45)
[2022-01-29] MEDS: Atorvastatin Calcium 40 MG TAB PO SCH (21:45)
[2022-01-29] MEDS: Cholecalciferol (Vitamin D3) 400 UNITS TAB PO SCH (21:45)
[2022-01-29] MEDS: Transdermal Patch Removal TOP SCH (21:46)
[2022-01-30] MEDS: Acetaminophen 325 MG TAB PO SCH ×4 (02:19→21:00)
[2022-01-30] MEDS: Polyethylene Glycol 3350 17 GM Packet PO SCH (08:46)
[2022-01-30] MEDS: Aspirin 81 mg Enteric Coated Tablet PO SCH (08:46)
[2022-01-30] MEDS: Dronedarone HCl 400 MG TAB PO SCH ×2 (08:47→17:21)
[2022-01-30] MEDS: Magnesium Oxide 400 MG TAB PO SCH ×2 (08:47→21:17)
[2022-01-30] MEDS: Apixaban 2.5 MG TAB PO SCH ×2 (08:47→21:16)
[2022-01-30] MEDS: Gabapentin 300 MG CAP PO SCH ×3 (08:47→21:14)
[2022-01-30] MEDS: Megestrol Acetate 40 MG TAB PO SCH ×2 (08:47→21:16)
[2022-01-30] MEDS: Doxycycline 100 MG CAP PO SCH ×2 (08:47→21:16)
[2022-01-30] MEDS: Multivitamin W/ Minerals 1 TAB PO SCH (08:47)
[2022-01-30] MEDS: Floranex 1 GM Packet PO SCH (08:47)
[2022-01-30] MEDS: Diltiazem HCl SR 60 mg Capsule PO SCH ×2 (08:48→21:17)
[2022-01-30] MEDS: Potassium Chloride 10 MEQ TAB PO SCH (08:48)
[2022-01-30] MEDS: Lidocaine 5% Patch TD SCH (08:48)
[2022-01-30] MEDS: Ferrous Sulfate 325 MG TAB PO SCH (08:48)
[2022-01-30] MEDS: Senokot S 8.6-50 MG TAB PO SCH ×2 (08:49→21:39)
[2022-01-30] MEDS: Mometasone/Formoterol 60 PUFF AER INH SCH ×2 (08:51→21:39)
[2022-01-30] MEDS: HYDROcodone/Acetaminophen 5/325 mg Tablet PO PRN (13:23)
[2022-01-30] MEDS: Zinc Sulfate 220 MG CAP PO SCH (21:14)
[2022-01-30] MEDS: Cholecalciferol (Vitamin D3) 400 UNITS TAB PO SCH (21:16)
[2022-01-30] MEDS: Atorvastatin Calcium 40 MG TAB PO SCH (21:16)
[2022-01-30] MEDS: Ascorbic Acid 500 mg Chewable Tablet PO SCH (21:17)
[2022-01-30] MEDS: Transdermal Patch Removal TOP SCH (21:39)
[2022-01-31] MEDS: Acetaminophen 325 MG TAB PO SCH ×4 (02:00→20:47)
[2022-01-31 05:10] LABS: #Basophils 0.1 thou/uL (0.0-0.2); #Eosinphils 0.3 thou/uL (0.0-0.7); #Lymphocytes 2.9 thou/uL (1.20-3.40); #Monocytes 0.6 thou/uL (0.11-0.59); #Neutrophils 4.2 thou/uL (1.40-6.50); %Basophils 1.2 % (0.0-1.0); %Eosinophils 3.5 % (0.0-10.0); %Lymphocytes 35.9 % (21.0-51.0); %Monocytes 7.7 % (0.0-10.0); %Neutrophils 51.8 % (42.0-75.0); Hemoglobin 8.6 g/dL (12.0-16.0); Mean Corpuscular HGB CONC 32.6 g/dL (32.0-36.0); Mean Corpuscular Hemoglobin 28.7 pg (27.0-31.0); Mean Platelet Volume 5.1 fL (7.4-10.4); Platelet Count 562 thou/uL (130-400); RBC Distribution Width 15.6 % (11.5-14.5); Red Blood Cell (RBC) Count 2.99 mill/uL (4.20-5.40); White Blood Cell (WBC) Count 8.2 thou/uL (4.8-10.8)
[2022-01-31 05:22] LABS: ALT (SGPT) 37 U/L (8-55); AST (SGOT) 28 U/L (5-34); Albumin 2.9 g/dL (3.4-4.8); Alkaline Phosphatase 98 U/L (40-110); Anion Gap 15 mmol/L (10-20); BUN (Urea Nitrogen) 16 mg/dL (9.8-20.1); Bilirubin, Total 0.3 mg/dL (0.2-1.2); Calc. Creatinine Clearance 58 mL/min (70-130); Calcium 8.9 mg/dL (7.8-10.44); Carbon Dioxide 23 mmol/L (23-31); Chloride 107 mmol/L (98-107); Globulin 4.1 g/dL (2.4-3.5); Glucose 92 mg/dL (83-110); Sodium 141 mmol/L (136-145)
[2022-01-31] MEDS: traMADol HCl 50 MG TAB PO PRN ×2 (09:20→20:44)
[2022-01-31] MEDS: Apixaban 2.5 MG TAB PO SCH ×2 (09:21→20:44)
[2022-01-31] MEDS: Gabapentin 300 MG CAP PO SCH ×3 (09:21→20:46)
[2022-01-31] MEDS: Dronedarone HCl 400 MG TAB PO SCH ×2 (09:22→17:32)
[2022-01-31] MEDS: Doxycycline 100 MG CAP PO SCH ×2 (09:22→20:45)
[2022-01-31] MEDS: Ferrous Sulfate 325 MG TAB PO SCH (09:22)
[2022-01-31] MEDS: Lidocaine 5% Patch TD SCH (09:23)
[2022-01-31] MEDS: Floranex 1 GM Packet PO SCH (09:23)
[2022-01-31] MEDS: Polyethylene Glycol 3350 17 GM Packet PO SCH (09:23)
[2022-01-31] MEDS: Potassium Chloride 10 MEQ TAB PO SCH (09:23)
[2022-01-31] MEDS: Magnesium Oxide 400 MG TAB PO SCH ×2 (09:23→20:49)
[2022-01-31] MEDS: Aspirin 81 mg Enteric Coated Tablet PO SCH (09:23)
[2022-01-31] MEDS: Senokot S 8.6-50 MG TAB PO SCH ×2 (09:23→20:43)
[2022-01-31] MEDS: Diltiazem HCl SR 60 mg Capsule PO SCH ×2 (09:23→20:48)
[2022-01-31] MEDS: Megestrol Acetate 40 MG TAB PO SCH ×2 (09:23→20:47)
[2022-01-31] MEDS: Multivitamin W/ Minerals 1 TAB PO SCH (09:23)
[2022-01-31] MEDS: HYDROcodone/Acetaminophen 5/325 mg Tablet PO PRN (13:39)
[2022-01-31] MEDS: Mometasone/Formoterol 60 PUFF AER INH SCH ×2 (16:39→20:50)
[2022-01-31] MEDS: Ascorbic Acid 500 mg Chewable Tablet PO SCH (20:43)
[2022-01-31] MEDS: Zinc Sulfate 220 MG CAP PO SCH (20:46)
[2022-01-31] MEDS: Atorvastatin Calcium 40 MG TAB PO SCH (20:49)
[2022-01-31] MEDS: Cholecalciferol (Vitamin D3) 400 UNITS TAB PO SCH (20:49)
[2022-01-31] MEDS: Transdermal Patch Removal TOP SCH (21:01)
[2022-02-01] MEDS: Acetaminophen 325 MG TAB PO SCH ×4 (01:39→22:03)
[2022-02-01] MEDS: Doxycycline 100 MG CAP PO SCH ×2 (08:50→22:04)
[2022-02-01] MEDS: Dronedarone HCl 400 MG TAB PO SCH ×2 (08:50→17:27)
[2022-02-01] MEDS: Potassium Chloride 10 MEQ TAB PO SCH (08:50)
[2022-02-01] MEDS: Gabapentin 300 MG CAP PO SCH ×3 (08:50→22:04)
[2022-02-01] MEDS: Ferrous Sulfate 325 MG TAB PO SCH (08:50)
[2022-02-01] MEDS: Megestrol Acetate 40 MG TAB PO SCH ×2 (08:51→22:04)
[2022-02-01] MEDS: Lidocaine 5% Patch TD SCH (08:52)
[2022-02-01] MEDS: Diltiazem HCl SR 60 mg Capsule PO SCH ×2 (08:53→22:04)
[2022-02-01] MEDS: Multivitamin W/ Minerals 1 TAB PO SCH (08:53)
[2022-02-01] MEDS: Polyethylene Glycol 3350 17 GM Packet PO SCH (08:53)
[2022-02-01] MEDS: Magnesium Oxide 400 MG TAB PO SCH ×2 (08:53→22:04)
[2022-02-01] MEDS: Senokot S 8.6-50 MG TAB PO SCH ×2 (08:53→22:02)
[2022-02-01] MEDS: Aspirin 81 mg Enteric Coated Tablet PO SCH (08:53)
[2022-02-01] MEDS: Floranex 1 GM Packet PO SCH (08:53)
[2022-02-01] MEDS: Apixaban 2.5 MG TAB PO SCH ×2 (08:53→22:04)
[2022-02-01] MEDS: traMADol HCl 50 MG TAB PO PRN (09:07)
[2022-02-01] MEDS: Mometasone/Formoterol 60 PUFF AER INH SCH ×2 (10:47→22:06)
[2022-02-01] MEDS: HYDROcodone/Acetaminophen 5/325 mg Tablet PO PRN (10:57)
[2022-02-01] MEDS: Ascorbic Acid 500 mg Chewable Tablet PO SCH (22:04)
[2022-02-01] MEDS: Zinc Sulfate 220 MG CAP PO SCH (22:04)
[2022-02-01] MEDS: Atorvastatin Calcium 40 MG TAB PO SCH (22:04)
[2022-02-01] MEDS: Cholecalciferol (Vitamin D3) 400 UNITS TAB PO SCH (22:04)
[2022-02-01] MEDS: Transdermal Patch Removal TOP SCH (22:07)
[2022-02-02] MEDS: Acetaminophen 325 MG TAB PO SCH ×4 (02:58→21:14)
[2022-02-02] MEDS: Megestrol Acetate 40 MG TAB PO SCH ×2 (09:08→21:12)
[2022-02-02] MEDS: Potassium Chloride 10 MEQ TAB PO SCH (09:09)
[2022-02-02] MEDS: Dronedarone HCl 400 MG TAB PO SCH ×2 (09:09→16:21)
[2022-02-02] MEDS: Ferrous Sulfate 325 MG TAB PO SCH (09:09)
[2022-02-02] MEDS: Floranex 1 GM Packet PO SCH (09:09)
[2022-02-02] MEDS: Lidocaine 5% Patch TD SCH (09:09)
[2022-02-02] MEDS: Polyethylene Glycol 3350 17 GM Packet PO SCH (09:09)
[2022-02-02] MEDS: Apixaban 2.5 MG TAB PO SCH ×2 (09:09→21:12)
[2022-02-02] MEDS: Gabapentin 300 MG CAP PO SCH ×3 (09:17→21:13)
[2022-02-02] MEDS: Magnesium Oxide 400 MG TAB PO SCH ×2 (11:17→21:13)
[2022-02-02] MEDS: Diltiazem HCl SR 60 mg Capsule PO SCH ×2 (11:17→21:18)
[2022-02-02] MEDS: Multivitamin W/ Minerals 1 TAB PO SCH (11:17)
[2022-02-02] MEDS: Doxycycline 100 MG CAP PO SCH ×2 (11:17→21:12)
[2022-02-02] MEDS: Aspirin 81 mg Enteric Coated Tablet PO SCH (11:17)
[2022-02-02] MEDS: Mometasone/Formoterol 60 PUFF AER INH SCH ×2 (11:18→21:14)
[2022-02-02] MEDS: Senokot S 8.6-50 MG TAB PO SCH ×2 (11:18→21:12)
[2022-02-02] MEDS: traMADol HCl 50 MG TAB PO PRN ×2 (12:34→16:27)
[2022-02-02] MEDS: Atorvastatin Calcium 40 MG TAB PO SCH (21:12)
[2022-02-02] MEDS: Ascorbic Acid 500 mg Chewable Tablet PO SCH (21:12)
[2022-02-02] MEDS: Zinc Sulfate 220 MG CAP PO SCH (21:12)
[2022-02-02] MEDS: Cholecalciferol (Vitamin D3) 400 UNITS TAB PO SCH (21:13)
[2022-02-03] MEDS: Transdermal Patch Removal TOP SCH ×2 (00:40→20:55)
[2022-02-03] MEDS: Acetaminophen 325 MG TAB PO SCH ×4 (02:58→20:54)
[2022-02-03] MEDS: Dronedarone HCl 400 MG TAB PO SCH ×2 (08:55→18:01)
[2022-02-03] MEDS: Aspirin 81 mg Enteric Coated Tablet PO SCH (08:55)
[2022-02-03] MEDS: traMADol HCl 50 MG TAB PO PRN (08:56)
[2022-02-03] MEDS: Potassium Chloride 10 MEQ TAB PO SCH (08:56)
[2022-02-03] MEDS: Megestrol Acetate 40 MG TAB PO SCH ×2 (08:56→20:55)
[2022-02-03] MEDS: Doxycycline 100 MG CAP PO SCH ×2 (08:58→20:56)
[2022-02-03] MEDS: Floranex 1 GM Packet PO SCH (08:58)
[2022-02-03] MEDS: Polyethylene Glycol 3350 17 GM Packet PO SCH (08:58)
[2022-02-03] MEDS: Diltiazem HCl SR 60 mg Capsule PO SCH ×2 (08:58→20:55)
[2022-02-03] MEDS: Apixaban 2.5 MG TAB PO SCH ×2 (08:58→20:55)
[2022-02-03] MEDS: Senokot S 8.6-50 MG TAB PO SCH ×2 (08:58→20:55)
[2022-02-03] MEDS: Ferrous Sulfate 325 MG TAB PO SCH (08:58)
[2022-02-03] MEDS: Lidocaine 5% Patch TD SCH (08:58)
[2022-02-03] MEDS: Magnesium Oxide 400 MG TAB PO SCH ×2 (08:58→20:54)
[2022-02-03] MEDS: Gabapentin 300 MG CAP PO SCH ×3 (09:00→20:55)
[2022-02-03] MEDS: Multivitamin W/ Minerals 1 TAB PO SCH (09:01)
[2022-02-03] MEDS: Mometasone/Formoterol 60 PUFF AER INH SCH ×2 (09:01→20:55)
[2022-02-03] MEDS: HYDROcodone/Acetaminophen 5/325 mg Tablet PO PRN (11:27)
[2022-02-03] MEDS: Atorvastatin Calcium 40 MG TAB PO SCH (20:55)
[2022-02-03] MEDS: Ascorbic Acid 500 mg Chewable Tablet PO SCH (20:55)
[2022-02-03] MEDS: Zinc Sulfate 220 MG CAP PO SCH (20:55)
[2022-02-03] MEDS: Cholecalciferol (Vitamin D3) 400 UNITS TAB PO SCH (20:55)
[2022-02-04] MEDS: Acetaminophen 325 MG TAB PO SCH ×4 (02:55→20:40)
[2022-02-04] MEDS: Lidocaine 5% Patch TD SCH (08:40)
[2022-02-04] MEDS: Floranex 1 GM Packet PO SCH (08:40)
[2022-02-04] MEDS: Potassium Chloride 10 MEQ TAB PO SCH (08:40)
[2022-02-04] MEDS: Aspirin 81 mg Enteric Coated Tablet PO SCH (08:40)
[2022-02-04] MEDS: Apixaban 2.5 MG TAB PO SCH ×2 (08:40→20:40)
[2022-02-04] MEDS: Dronedarone HCl 400 MG TAB PO SCH ×2 (08:41→17:23)
[2022-02-04] MEDS: Senokot S 8.6-50 MG TAB PO SCH ×2 (08:41→20:39)
[2022-02-04] MEDS: Ferrous Sulfate 325 MG TAB PO SCH (08:42)
[2022-02-04] MEDS: Magnesium Oxide 400 MG TAB PO SCH ×2 (08:42→20:41)
[2022-02-04] MEDS: Megestrol Acetate 40 MG TAB PO SCH ×2 (08:42→20:39)
[2022-02-04] MEDS: Multivitamin W/ Minerals 1 TAB PO SCH (08:42)
[2022-02-04] MEDS: Gabapentin 300 MG CAP PO SCH ×3 (08:42→20:39)
[2022-02-04] MEDS: Polyethylene Glycol 3350 17 GM Packet PO SCH (08:43)
[2022-02-04] MEDS: Diltiazem HCl SR 60 mg Capsule PO SCH ×2 (08:44→20:39)
[2022-02-04] MEDS: Doxycycline 100 MG CAP PO SCH ×2 (08:44→20:42)
[2022-02-04] MEDS: Mometasone/Formoterol 60 PUFF AER INH SCH ×2 (08:45→21:32)
[2022-02-04] MEDS: HYDROcodone/Acetaminophen 5/325 mg Tablet PO PRN (12:48)
[2022-02-04] MEDS: Atorvastatin Calcium 40 MG TAB PO SCH (20:41)
[2022-02-04] MEDS: Ascorbic Acid 500 mg Chewable Tablet PO SCH (20:41)
[2022-02-04] MEDS: Cholecalciferol (Vitamin D3) 400 UNITS TAB PO SCH (20:41)
[2022-02-04] MEDS: Zinc Sulfate 220 MG CAP PO SCH (20:41)
[2022-02-04] MEDS: Transdermal Patch Removal TOP SCH (21:33)
[2022-02-04] MEDS: traMADol HCl 50 MG TAB PO PRN (21:42)
[2022-02-05] MEDS: Acetaminophen 325 MG TAB PO SCH ×4 (02:00→20:08)
[2022-02-05] MEDS: Polyethylene Glycol 3350 17 GM Packet PO SCH (08:58)
[2022-02-05] MEDS: Senokot S 8.6-50 MG TAB PO SCH ×2 (08:58→20:07)
[2022-02-05] MEDS: Dronedarone HCl 400 MG TAB PO SCH ×2 (09:00→17:04)
[2022-02-05] MEDS: Potassium Chloride 10 MEQ TAB PO SCH (09:00)
[2022-02-05] MEDS: Aspirin 81 mg Enteric Coated Tablet PO SCH (09:00)
[2022-02-05] MEDS: Diltiazem HCl SR 60 mg Capsule PO SCH ×2 (09:00→20:09)
[2022-02-05] MEDS: Multivitamin W/ Minerals 1 TAB PO SCH (09:00)
[2022-02-05] MEDS: Ferrous Sulfate 325 MG TAB PO SCH (09:00)
[2022-02-05] MEDS: Megestrol Acetate 40 MG TAB PO SCH ×2 (09:00→20:07)
[2022-02-05] MEDS: Magnesium Oxide 400 MG TAB PO SCH ×2 (09:00→20:08)
[2022-02-05] MEDS: Apixaban 2.5 MG TAB PO SCH ×2 (09:00→20:09)
[2022-02-05] MEDS: Floranex 1 GM Packet PO SCH (09:01)
[2022-02-05] MEDS: Lidocaine 5% Patch TD SCH (09:01)
[2022-02-05] MEDS: Mometasone/Formoterol 60 PUFF AER INH SCH ×2 (09:02→20:09)
[2022-02-05] MEDS: Doxycycline 100 MG CAP PO SCH ×2 (09:02→20:09)
[2022-02-05] MEDS: Gabapentin 300 MG CAP PO SCH ×3 (09:05→20:07)
[2022-02-05] MEDS: HYDROcodone/Acetaminophen 5/325 mg Tablet PO PRN (11:25)
[2022-02-05] MEDS: Zinc Sulfate 220 MG CAP PO SCH (20:08)
[2022-02-05] MEDS: Atorvastatin Calcium 40 MG TAB PO SCH (20:08)
[2022-02-05] MEDS: Ascorbic Acid 500 mg Chewable Tablet PO SCH (20:09)
[2022-02-05] MEDS: Cholecalciferol (Vitamin D3) 400 UNITS TAB PO SCH (20:09)
[2022-02-05] MEDS: Transdermal Patch Removal TOP SCH (21:00)
[2022-02-06] MEDS: Acetaminophen 325 MG TAB PO SCH ×4 (02:09→20:54)
[2022-02-06] MEDS: traMADol HCl 50 MG TAB PO PRN ×2 (02:10→11:02)
[2022-02-06] MEDS: Aspirin 81 mg Enteric Coated Tablet PO SCH (07:40)
[2022-02-06] MEDS: Ferrous Sulfate 325 MG TAB PO SCH (07:40)
[2022-02-06] MEDS: Doxycycline 100 MG CAP PO SCH ×2 (07:40→20:53)
[2022-02-06] MEDS: Dronedarone HCl 400 MG TAB PO SCH ×2 (07:40→17:18)
[2022-02-06] MEDS: Megestrol Acetate 40 MG TAB PO SCH ×2 (07:41→20:52)
[2022-02-06] MEDS: Apixaban 2.5 MG TAB PO SCH ×2 (07:41→20:54)
[2022-02-06] MEDS: Diltiazem HCl SR 60 mg Capsule PO SCH ×2 (07:41→20:53)
[2022-02-06] MEDS: Magnesium Oxide 400 MG TAB PO SCH ×2 (07:41→20:53)
[2022-02-06] MEDS: Potassium Chloride 10 MEQ TAB PO SCH (07:41)
[2022-02-06] MEDS: Multivitamin W/ Minerals 1 TAB PO SCH (07:41)
[2022-02-06] MEDS: Gabapentin 300 MG CAP PO SCH ×3 (07:41→20:53)
[2022-02-06] MEDS: Floranex 1 GM Packet PO SCH (07:42)
[2022-02-06] MEDS: Mometasone/Formoterol 60 PUFF AER INH SCH ×2 (07:42→23:40)
[2022-02-06] MEDS: Lidocaine 5% Patch TD SCH (07:42)
[2022-02-06] MEDS: Polyethylene Glycol 3350 17 GM Packet PO SCH (07:44)
[2022-02-06] MEDS: Senokot S 8.6-50 MG TAB PO SCH ×2 (07:44→20:52)
[2022-02-06] MEDS: Zinc Sulfate 220 MG CAP PO SCH (20:52)
[2022-02-06] MEDS: Cholecalciferol (Vitamin D3) 400 UNITS TAB PO SCH (20:52)
[2022-02-06] MEDS: Atorvastatin Calcium 40 MG TAB PO SCH (20:54)
[2022-02-06] MEDS: Ascorbic Acid 500 mg Chewable Tablet PO SCH (20:54)
[2022-02-06] MEDS: Transdermal Patch Removal TOP SCH (21:00)
[2022-02-07] MEDS: Acetaminophen 325 MG TAB PO SCH ×4 (02:52→20:27)
[2022-02-07] MEDS: Lidocaine 5% Patch TD SCH (08:34)
[2022-02-07] MEDS: Multivitamin W/ Minerals 1 TAB PO SCH (08:34)
[2022-02-07] MEDS: Magnesium Oxide 400 MG TAB PO SCH ×2 (08:34→20:27)
[2022-02-07] MEDS: Floranex 1 GM Packet PO SCH (08:34)
[2022-02-07] MEDS: Gabapentin 300 MG CAP PO SCH ×3 (08:34→20:27)
[2022-02-07] MEDS: Dronedarone HCl 400 MG TAB PO SCH ×2 (08:35→17:55)
[2022-02-07] MEDS: Polyethylene Glycol 3350 17 GM Packet PO SCH (08:35)
[2022-02-07] MEDS: Ferrous Sulfate 325 MG TAB PO SCH (08:35)
[2022-02-07] MEDS: Apixaban 2.5 MG TAB PO SCH ×2 (08:35→20:29)
[2022-02-07] MEDS: Aspirin 81 mg Enteric Coated Tablet PO SCH (08:35)
[2022-02-07] MEDS: Megestrol Acetate 40 MG TAB PO SCH ×2 (08:35→20:29)
[2022-02-07] MEDS: Potassium Chloride 10 MEQ TAB PO SCH (08:35)
[2022-02-07] MEDS: Senokot S 8.6-50 MG TAB PO SCH ×2 (08:36→20:27)
[2022-02-07] MEDS: Mometasone/Formoterol 60 PUFF AER INH SCH ×2 (08:37→20:29)
[2022-02-07] MEDS: Diltiazem HCl SR 60 mg Capsule PO SCH ×2 (08:41→20:28)
[2022-02-07] MEDS: Ascorbic Acid 500 mg Chewable Tablet PO SCH (20:27)
[2022-02-07] MEDS: Zinc Sulfate 220 MG CAP PO SCH (20:27)
[2022-02-07] MEDS: Cholecalciferol (Vitamin D3) 400 UNITS TAB PO SCH (20:28)
[2022-02-07] MEDS: Atorvastatin Calcium 40 MG TAB PO SCH (20:29)
[2022-02-07] MEDS: Transdermal Patch Removal TOP SCH (21:00)
[2022-02-08] MEDS: Acetaminophen 325 MG TAB PO SCH ×4 (01:46→20:24)
[2022-02-08 05:46] LABS: Hemoglobin 8.2 g/dL (12.0-16.0); Platelet Count 627 thou/uL (130-400)
[2022-02-08] MEDS: Ferrous Sulfate 325 MG TAB PO SCH (09:04)
[2022-02-08] MEDS: Megestrol Acetate 40 MG TAB PO SCH ×2 (09:04→20:22)
[2022-02-08] MEDS: Magnesium Oxide 400 MG TAB PO SCH ×2 (09:04→20:25)
[2022-02-08] MEDS: Diltiazem HCl SR 60 mg Capsule PO SCH ×2 (09:04→20:25)
[2022-02-08] MEDS: Dronedarone HCl 400 MG TAB PO SCH ×2 (09:04→17:24)
[2022-02-08] MEDS: Multivitamin W/ Minerals 1 TAB PO SCH (09:04)
[2022-02-08] MEDS: Gabapentin 300 MG CAP PO SCH ×3 (09:04→20:23)
[2022-02-08] MEDS: Potassium Chloride 10 MEQ TAB PO SCH (09:05)
[2022-02-08] MEDS: Aspirin 81 mg Enteric Coated Tablet PO SCH (09:05)
[2022-02-08] MEDS: Apixaban 2.5 MG TAB PO SCH ×2 (09:05→20:25)
[2022-02-08] MEDS: Floranex 1 GM Packet PO SCH (09:05)
[2022-02-08] MEDS: Mometasone/Formoterol 60 PUFF AER INH SCH ×2 (09:06→20:28)
[2022-02-08] MEDS: Lidocaine 5% Patch TD SCH (09:06)
[2022-02-08] MEDS: Polyethylene Glycol 3350 17 GM Packet PO SCH (09:17)
[2022-02-08] MEDS: Senokot S 8.6-50 MG TAB PO SCH ×2 (09:17→20:27)
[2022-02-08] MEDS: HYDROcodone/Acetaminophen 5/325 mg Tablet PO PRN (11:35)
[2022-02-08] MEDS: Cholecalciferol (Vitamin D3) 400 UNITS TAB PO SCH (20:23)
[2022-02-08] MEDS: Atorvastatin Calcium 40 MG TAB PO SCH (20:23)
[2022-02-08] MEDS: Zinc Sulfate 220 MG CAP PO SCH (20:25)
[2022-02-08] MEDS: Ascorbic Acid 500 mg Chewable Tablet PO SCH (20:25)
[2022-02-08] MEDS: Transdermal Patch Removal TOP SCH (20:26)
[2022-02-09] MEDS: Acetaminophen 325 MG TAB PO SCH ×4 (02:21→20:33)
[2022-02-09] MEDS: Aspirin 81 mg Enteric Coated Tablet PO SCH (08:21)
[2022-02-09] MEDS: Megestrol Acetate 40 MG TAB PO SCH ×2 (08:21→20:34)
[2022-02-09] MEDS: Magnesium Oxide 400 MG TAB PO SCH ×2 (08:21→20:33)
[2022-02-09] MEDS: Multivitamin W/ Minerals 1 TAB PO SCH (08:21)
[2022-02-09] MEDS: Ferrous Sulfate 325 MG TAB PO SCH (08:21)
[2022-02-09] MEDS: Potassium Chloride 10 MEQ TAB PO SCH (08:21)
[2022-02-09] MEDS: Dronedarone HCl 400 MG TAB PO SCH ×2 (08:21→16:27)
[2022-02-09] MEDS: Apixaban 2.5 MG TAB PO SCH ×2 (08:21→20:35)
[2022-02-09] MEDS: Diltiazem HCl SR 60 mg Capsule PO SCH ×2 (08:21→20:35)
[2022-02-09] MEDS: Gabapentin 300 MG CAP PO SCH ×3 (08:22→20:32)
[2022-02-09] MEDS: Floranex 1 GM Packet PO SCH (08:22)
[2022-02-09] MEDS: Mometasone/Formoterol 60 PUFF AER INH SCH ×2 (08:23→20:36)
[2022-02-09] MEDS: Lidocaine 5% Patch TD SCH (08:23)
[2022-02-09] MEDS: Senokot S 8.6-50 MG TAB PO SCH ×2 (08:24→20:32)
[2022-02-09] MEDS: Polyethylene Glycol 3350 17 GM Packet PO SCH (08:24)
[2022-02-09] MEDS: traMADol HCl 50 MG TAB PO PRN (13:20)
[2022-02-09] MEDS: tiZANidine HCl 4 MG TAB PO SCH (20:32)
[2022-02-09] MEDS: Zinc Sulfate 220 MG CAP PO SCH (20:33)
[2022-02-09] MEDS: Cholecalciferol (Vitamin D3) 400 UNITS TAB PO SCH (20:33)
[2022-02-09] MEDS: Atorvastatin Calcium 40 MG TAB PO SCH (20:34)
[2022-02-09] MEDS: HYDROcodone/Acetaminophen 5/325 mg Tablet PO PRN (20:34)
[2022-02-09] MEDS: Ascorbic Acid 500 mg Chewable Tablet PO SCH (20:35)
[2022-02-09] MEDS: Transdermal Patch Removal TOP SCH (20:39)
[2022-02-10] MEDS: Acetaminophen 325 MG TAB PO SCH ×4 (01:46→20:23)
[2022-02-10] MEDS: Potassium Chloride 10 MEQ TAB PO SCH (09:11)
[2022-02-10] MEDS: Aspirin 81 mg Enteric Coated Tablet PO SCH (09:12)
[2022-02-10] MEDS: Gabapentin 300 MG CAP PO SCH ×3 (09:12→20:26)
[2022-02-10] MEDS: Dronedarone HCl 400 MG TAB PO SCH ×2 (09:13→16:09)
[2022-02-10] MEDS: Ferrous Sulfate 325 MG TAB PO SCH (09:13)
[2022-02-10] MEDS: Magnesium Oxide 400 MG TAB PO SCH ×2 (09:13→20:25)
[2022-02-10] MEDS: Multivitamin W/ Minerals 1 TAB PO SCH (09:13)
[2022-02-10] MEDS: Senokot S 8.6-50 MG TAB PO SCH ×2 (09:13→20:25)
[2022-02-10] MEDS: Apixaban 2.5 MG TAB PO SCH ×2 (09:14→20:25)
[2022-02-10] MEDS: Floranex 1 GM Packet PO SCH (09:14)
[2022-02-10] MEDS: Diltiazem HCl SR 60 mg Capsule PO SCH ×2 (09:14→20:25)
[2022-02-10] MEDS: Megestrol Acetate 40 MG TAB PO SCH ×2 (09:14→20:25)
[2022-02-10] MEDS: tiZANidine HCl 4 MG TAB PO SCH ×2 (09:14→20:25)
[2022-02-10] MEDS: Lidocaine 5% Patch TD SCH (09:15)
[2022-02-10] MEDS: Polyethylene Glycol 3350 17 GM Packet PO SCH (09:25)
[2022-02-10] MEDS: Mometasone/Formoterol 60 PUFF AER INH SCH ×2 (09:34→20:27)
[2022-02-10] MEDS: Ascorbic Acid 500 mg Chewable Tablet PO SCH (20:25)
[2022-02-10] MEDS: Zinc Sulfate 220 MG CAP PO SCH (20:25)
[2022-02-10] MEDS: Atorvastatin Calcium 40 MG TAB PO SCH (20:25)
[2022-02-10] MEDS: Cholecalciferol (Vitamin D3) 400 UNITS TAB PO SCH (20:25)
[2022-02-10] MEDS: Transdermal Patch Removal TOP SCH (20:29)
[2022-02-11] MEDS: Acetaminophen 325 MG TAB PO SCH ×4 (02:46→21:38)
[2022-02-11] MEDS: traMADol HCl 50 MG TAB PO PRN (07:30)
[2022-02-11] MEDS: tiZANidine HCl 4 MG TAB PO SCH ×2 (07:30→21:36)
[2022-02-11] MEDS: Apixaban 2.5 MG TAB PO SCH ×2 (09:30→21:36)
[2022-02-11] MEDS: Aspirin 81 mg Enteric Coated Tablet PO SCH (09:30)
[2022-02-11] MEDS: Floranex 1 GM Packet PO SCH (09:30)
[2022-02-11] MEDS: Polyethylene Glycol 3350 17 GM Packet PO SCH (09:30)
[2022-02-11] MEDS: Diltiazem HCl SR 60 mg Capsule PO SCH ×2 (09:31→21:36)
[2022-02-11] MEDS: Senokot S 8.6-50 MG TAB PO SCH ×2 (09:31→21:36)
[2022-02-11] MEDS: Dronedarone HCl 400 MG TAB PO SCH ×2 (09:31→17:44)
[2022-02-11] MEDS: Gabapentin 300 MG CAP PO SCH ×3 (09:31→21:36)
[2022-02-11] MEDS: Magnesium Oxide 400 MG TAB PO SCH ×2 (09:33→21:36)
[2022-02-11] MEDS: Potassium Chloride 10 MEQ TAB PO SCH (09:33)
[2022-02-11] MEDS: Ferrous Sulfate 325 MG TAB PO SCH (09:34)
[2022-02-11] MEDS: Megestrol Acetate 40 MG TAB PO SCH ×2 (09:35→21:36)
[2022-02-11] MEDS: Lidocaine 5% Patch TD SCH (09:35)
[2022-02-11] MEDS: Multivitamin W/ Minerals 1 TAB PO SCH (09:35)
[2022-02-11] MEDS: Mometasone/Formoterol 60 PUFF AER INH SCH ×2 (09:39→21:39)
[2022-02-11] MEDS: Zinc Sulfate 220 MG CAP PO SCH (21:36)
[2022-02-11] MEDS: Atorvastatin Calcium 40 MG TAB PO SCH (21:36)
[2022-02-11] MEDS: Cholecalciferol (Vitamin D3) 400 UNITS TAB PO SCH (21:36)
[2022-02-11] MEDS: Ascorbic Acid 500 mg Chewable Tablet PO SCH (21:36)
[2022-02-11] MEDS: Transdermal Patch Removal TOP SCH (21:40)
[2022-02-12] MEDS: Acetaminophen 325 MG TAB PO SCH ×5 (02:22→20:57)
[2022-02-12] MEDS: traMADol HCl 50 MG TAB PO PRN ×2 (09:46→16:38)
[2022-02-12] MEDS: Floranex 1 GM Packet PO SCH (09:54)
[2022-02-12] MEDS: Senokot S 8.6-50 MG TAB PO SCH ×2 (09:54→20:56)
[2022-02-12] MEDS: Gabapentin 300 MG CAP PO SCH ×3 (09:54→20:56)
[2022-02-12] MEDS: Diltiazem HCl SR 60 mg Capsule PO SCH ×2 (09:55→20:56)
[2022-02-12] MEDS: Multivitamin W/ Minerals 1 TAB PO SCH (09:55)
[2022-02-12] MEDS: tiZANidine HCl 4 MG TAB PO SCH ×2 (09:56→20:56)
[2022-02-12] MEDS: Megestrol Acetate 40 MG TAB PO SCH ×2 (09:57→20:56)
[2022-02-12] MEDS: Lidocaine 5% Patch TD SCH (09:58)
[2022-02-12] MEDS: Dronedarone HCl 400 MG TAB PO SCH ×2 (09:58→16:40)
[2022-02-12] MEDS: Aspirin 81 mg Enteric Coated Tablet PO SCH (09:58)
[2022-02-12] MEDS: Ferrous Sulfate 325 MG TAB PO SCH (09:58)
[2022-02-12] MEDS: Apixaban 2.5 MG TAB PO SCH ×2 (09:58→20:56)
[2022-02-12] MEDS: Magnesium Oxide 400 MG TAB PO SCH ×2 (09:58→20:56)
[2022-02-12] MEDS: Potassium Chloride 10 MEQ TAB PO SCH (10:00)
[2022-02-12] MEDS: Mometasone/Formoterol 60 PUFF AER INH SCH ×2 (10:01→20:58)
[2022-02-12] MEDS: Polyethylene Glycol 3350 17 GM Packet PO SCH (11:48)
[2022-02-12] MEDS: Atorvastatin Calcium 40 MG TAB PO SCH (20:56)
[2022-02-12] MEDS: Ascorbic Acid 500 mg Chewable Tablet PO SCH (20:56)
[2022-02-12] MEDS: Cholecalciferol (Vitamin D3) 400 UNITS TAB PO SCH (20:56)
[2022-02-12] MEDS: Zinc Sulfate 220 MG CAP PO SCH (20:56)
[2022-02-12] MEDS: Transdermal Patch Removal TOP SCH (20:59)
[2022-02-13] MEDS: Acetaminophen 325 MG TAB PO SCH ×4 (01:14→22:14)
[2022-02-13] MEDS: Megestrol Acetate 40 MG TAB PO SCH ×2 (08:54→22:17)
[2022-02-13] MEDS: Gabapentin 300 MG CAP PO SCH ×3 (08:54→22:15)
[2022-02-13] MEDS: Senokot S 8.6-50 MG TAB PO SCH ×2 (08:55→22:17)
[2022-02-13] MEDS: Floranex 1 GM Packet PO SCH (08:56)
[2022-02-13] MEDS: Magnesium Oxide 400 MG TAB PO SCH ×2 (08:57→22:17)
[2022-02-13] MEDS: Ferrous Sulfate 325 MG TAB PO SCH (08:57)
[2022-02-13] MEDS: Aspirin 81 mg Enteric Coated Tablet PO SCH (08:57)
[2022-02-13] MEDS: Apixaban 2.5 MG TAB PO SCH ×2 (08:57→22:17)
[2022-02-13] MEDS: Potassium Chloride 10 MEQ TAB PO SCH (08:57)
[2022-02-13] MEDS: Diltiazem HCl SR 60 mg Capsule PO SCH ×2 (08:57→22:17)
[2022-02-13] MEDS: tiZANidine HCl 4 MG TAB PO SCH ×2 (08:57→22:18)
[2022-02-13] MEDS: Dronedarone HCl 400 MG TAB PO SCH ×2 (08:57→17:06)
[2022-02-13] MEDS: Multivitamin W/ Minerals 1 TAB PO SCH (08:57)
[2022-02-13] MEDS: Mometasone/Formoterol 60 PUFF AER INH SCH ×2 (08:58→22:18)
[2022-02-13] MEDS: Lidocaine 5% Patch TD SCH (08:59)
[2022-02-13] MEDS: Polyethylene Glycol 3350 17 GM Packet PO SCH (09:00)
[2022-02-13] MEDS: Atorvastatin Calcium 40 MG TAB PO SCH (22:17)
[2022-02-13] MEDS: Ascorbic Acid 500 mg Chewable Tablet PO SCH (22:17)
[2022-02-13] MEDS: Cholecalciferol (Vitamin D3) 400 UNITS TAB PO SCH (22:17)
[2022-02-13] MEDS: Zinc Sulfate 220 MG CAP PO SCH (22:17)
[2022-02-13] MEDS: Transdermal Patch Removal TOP SCH (22:26)
[2022-02-14] MEDS: Acetaminophen 325 MG TAB PO SCH ×4 (01:12→20:54)
[2022-02-14 08:00] LABS: #Basophils 0.1 thou/uL (0.0-0.2); #Eosinphils 0.2 thou/uL (0.0-0.7); #Lymphocytes 2.4 thou/uL (1.20-3.40); #Monocytes 0.8 thou/uL (0.11-0.59); #Neutrophils 5.2 thou/uL (1.40-6.50); %Basophils 1.4 % (0.0-1.0); %Eosinophils 2.8 % (0.0-10.0); %Lymphocytes 27.8 % (21.0-51.0); %Monocytes 8.6 % (0.0-10.0); %Neutrophils 59.4 % (42.0-75.0); Mean Corpuscular HGB CONC 32.4 g/dL (32.0-36.0); Mean Corpuscular Hemoglobin 28.7 pg (27.0-31.0); Mean Corpuscular Volume 88.5 fL (78.0-98.0); Mean Platelet Volume 5.5 fL (7.4-10.4); Platelet Count 521 thou/uL (130-400); RBC Distribution Width 16.6 % (11.5-14.5); White Blood Cell (WBC) Count 8.8 thou/uL (4.8-10.8)
[2022-02-14] MEDS: Mometasone/Formoterol 60 PUFF AER INH SCH ×2 (10:36→20:55)
[2022-02-14] MEDS: Aspirin 81 mg Enteric Coated Tablet PO SCH (10:38)
[2022-02-14] MEDS: Gabapentin 300 MG CAP PO SCH ×3 (10:38→20:53)
[2022-02-14] MEDS: Senokot S 8.6-50 MG TAB PO SCH ×2 (10:39→20:53)
[2022-02-14] MEDS: Apixaban 2.5 MG TAB PO SCH (10:39)
[2022-02-14] MEDS: Megestrol Acetate 40 MG TAB PO SCH ×2 (10:39→20:52)
[2022-02-14] MEDS: tiZANidine HCl 4 MG TAB PO SCH ×2 (10:39→20:52)
[2022-02-14] MEDS: Multivitamin W/ Minerals 1 TAB PO SCH (10:39)
[2022-02-14] MEDS: Diltiazem HCl SR 60 mg Capsule PO SCH ×2 (10:40→20:52)
[2022-02-14] MEDS: Dronedarone HCl 400 MG TAB PO SCH ×2 (10:40→17:46)
[2022-02-14] MEDS: Ferrous Sulfate 325 MG TAB PO SCH ×3 (10:40→20:53)
[2022-02-14] MEDS: Potassium Chloride 10 MEQ TAB PO SCH (10:40)
[2022-02-14] MEDS: Floranex 1 GM Packet PO SCH (10:40)
[2022-02-14] MEDS: Lidocaine 5% Patch TD SCH (10:41)
[2022-02-14] MEDS: Polyethylene Glycol 3350 17 GM Packet PO SCH (10:42)
[2022-02-14] MEDS: Magnesium Oxide 400 MG TAB PO SCH ×2 (12:51→20:52)
[2022-02-14] MEDS: Ascorbic Acid 500 mg Chewable Tablet PO SCH (20:52)
[2022-02-14] MEDS: Zinc Sulfate 220 MG CAP PO SCH (20:53)
[2022-02-14] MEDS: Atorvastatin Calcium 40 MG TAB PO SCH (20:53)
[2022-02-14] MEDS: Cholecalciferol (Vitamin D3) 400 UNITS TAB PO SCH (20:54)
[2022-02-14] MEDS: Transdermal Patch Removal TOP SCH (20:55)
[2022-02-14] MEDS: HYDROcodone/Acetaminophen 5/325 mg Tablet PO PRN (23:13)
[2022-02-15] MEDS: Acetaminophen 325 MG TAB PO SCH ×4 (00:49→20:51)
[2022-02-15] MEDS: HYDROcodone/Acetaminophen 5/325 mg Tablet PO PRN (03:38)
[2022-02-15] MEDS: Dronedarone HCl 400 MG TAB PO SCH ×2 (09:00→17:51)
[2022-02-15] MEDS: Lidocaine 5% Patch TD SCH (09:00)
[2022-02-15] MEDS: Floranex 1 GM Packet PO SCH (09:00)
[2022-02-15] MEDS: Aspirin 81 mg Enteric Coated Tablet PO SCH (09:01)
[2022-02-15] MEDS: Gabapentin 300 MG CAP PO SCH ×3 (09:01→20:51)
[2022-02-15] MEDS: Potassium Chloride 10 MEQ TAB PO SCH (09:02)
[2022-02-15] MEDS: Senokot S 8.6-50 MG TAB PO SCH ×2 (09:02→20:50)
[2022-02-15] MEDS: Diltiazem HCl SR 60 mg Capsule PO SCH ×2 (09:03→20:50)
[2022-02-15] MEDS: Ferrous Sulfate 325 MG TAB PO SCH ×2 (09:03→20:51)
[2022-02-15] MEDS: Mometasone/Formoterol 60 PUFF AER INH SCH ×2 (09:03→20:52)
[2022-02-15] MEDS: Magnesium Oxide 400 MG TAB PO SCH ×2 (09:03→20:50)
[2022-02-15] MEDS: tiZANidine HCl 4 MG TAB PO SCH ×2 (09:03→20:50)
[2022-02-15] MEDS: Multivitamin W/ Minerals 1 TAB PO SCH (09:03)
[2022-02-15] MEDS: Megestrol Acetate 40 MG TAB PO SCH ×2 (09:03→20:51)
[2022-02-15] MEDS: Polyethylene Glycol 3350 17 GM Packet PO SCH (09:04)
[2022-02-15] MEDS: Zinc Sulfate 220 MG CAP PO SCH (20:50)
[2022-02-15] MEDS: Atorvastatin Calcium 40 MG TAB PO SCH (20:50)
[2022-02-15] MEDS: Cholecalciferol (Vitamin D3) 400 UNITS TAB PO SCH (20:50)
[2022-02-15] MEDS: Ascorbic Acid 500 mg Chewable Tablet PO SCH (20:51)
[2022-02-15] MEDS: Transdermal Patch Removal TOP SCH (20:53)
[2022-02-15] MEDS: traMADol HCl 50 MG TAB PO PRN (23:33)
[2022-02-16] MEDS: Acetaminophen 325 MG TAB PO SCH ×3 (02:08→15:05)
[2022-02-16] MEDS: traMADol HCl 50 MG TAB PO PRN (08:26)
[2022-02-16] MEDS: Potassium Chloride 10 MEQ TAB PO SCH (08:27)
[2022-02-16] MEDS: tiZANidine HCl 4 MG TAB PO SCH (08:27)
[2022-02-16] MEDS: Dronedarone HCl 400 MG TAB PO SCH ×2 (08:27→18:21)
[2022-02-16] MEDS: Megestrol Acetate 40 MG TAB PO SCH (08:27)
[2022-02-16] MEDS: Gabapentin 300 MG CAP PO SCH ×2 (08:28→15:04)
[2022-02-16] MEDS: Diltiazem HCl SR 60 mg Capsule PO SCH (11:01)
[2022-02-16] MEDS: Aspirin 81 mg Enteric Coated Tablet PO SCH (11:01)
[2022-02-16] MEDS: Ferrous Sulfate 325 MG TAB PO SCH (11:01)
[2022-02-16] MEDS: Senokot S 8.6-50 MG TAB PO SCH (11:01)
[2022-02-16] MEDS: Multivitamin W/ Minerals 1 TAB PO SCH (11:02)
[2022-02-16] MEDS: Lidocaine 5% Patch TD SCH (11:02)
[2022-02-16] MEDS: Magnesium Oxide 400 MG TAB PO SCH (11:02)
[2022-02-16] MEDS: Floranex 1 GM Packet PO SCH (11:02)
[2022-02-16] MEDS: Mometasone/Formoterol 60 PUFF AER INH SCH (11:03)
[2022-02-16] MEDS: Polyethylene Glycol 3350 17 GM Packet PO SCH (11:03)
[2022-02-16 17:22] VITALS: BP 153/84; TEMP 99.2
[2022-02-17] MEDS ORDERED: Apixaban 2.5 MG TAB PO SCH (09:00)
== END 2022-02-16 18:30 | DRG 947 ==
LOC: BURMED 19:12
PROVIDERS: ADMIT Family Medicine; ATTEND Family Medicine
DX: R53.1 Weakness (principal); L89.154 Pressure ulcer of sacral region, stage 4; R78.81 Bacteremia; G44.049 Chronic paroxysmal hemicrania, not intractable; R41.3 Other amnesia; L98.429 Non-pressure chronic ulcer of back with unspecified severity; B95.62 Methicillin resistant Staphylococcus aureus infection as the cause of diseases classified elsewhere; I48.0 Paroxysmal atrial fibrillation; I25.10 Atherosclerotic heart disease of native coronary artery without angina pectoris; I10 Essential (primary) hypertension; J44.9 Chronic obstructive pulmonary disease, unspecified; F03.90 Unspecified dementia, unspecified severity, without behavioral disturbance, psychotic disturbance, mood disturbance, and anxiety; R33.9 Retention of urine, unspecified; L89.620 Pressure ulcer of left heel, unstageable
CPT/HCPCS: 36415; 80048; 80053; 82274; 82565; 85014; 85018; 85025; 85027; 85049; 94664; 97602; S0179